=== PATIENT | male | born 1945 | race Caucasian/White ===

== ENCOUNTER 2017-01-29 11:23 | Inpatient (IN) | payer MEDICARE ==
--- NOTE | 2017-01-29 12:14 | RAD ---
CHEST ONE VIEW: History: Hypotension. Comparison: 01-05-15 FINDINGS: Cardiac device is similar. Lungs are slightly hypoinflated. Mild prominence of the pulmonary arteries . No acute osseous abnormality. IMPRESSION: Mild lung hyoinflation and pulmonary arterial enlargement. POS: [facility]
[2017-01-29 12:26] LABS: Hematocrit 44.7 % (42.0-52.0); Mean Platelet Volume 7.7 fL (7.4-10.4); Red Blood Cell (RBC) Count 4.64 mill/uL (4.70-6.10); White Blood Cell (WBC) Count 18.2 thou/uL (4.8-10.8)
[2017-01-29 12:47] LABS: ALT (SGPT) 26 U/L (8-55); AST (SGOT) 42 U/L (5-34); Alkaline Phosphatase 69 U/L (40-150); Anion Gap 23 mmol/L (10-20); BUN (Urea Nitrogen) 50 mg/dL (8.4-25.7); Bilirubin, Total 0.8 mg/dL (0.2-1.2); Calc. Creatinine Clearance 0 mL/min (70-130); Carbon Dioxide 35 mmol/L (23-31); Chloride 75 mmol/L (98-107); Estimated GFR-MDRD 18; Globulin 3.2 g/dL (2.4-3.5); Protein, Total 6.4 g/dL (5.8-8.1)
[2017-01-29 12:48] LABS: Band 62 % (5-11); Metamyelocyte 4 % (0-0); Myelocyte 1 % (0-0); Neutrophil 22 % (42-75); Reactive Lymphocytes 1 % (0-10); Toxic Granulation SLIGHT; Vacuoles MODERATE
[2017-01-29 12:51] LABS: Troponin I 0.074 ng/mL (< 0.028)
[2017-01-29] MEDS ORDERED: Norepinephrine 8 MG/0.9% NS 250 ML ONE (14:12)
--- NOTE | 2017-01-29 14:36 | RAD ---
FRONTAL VIEW CHEST: COMPARISON: 01/29/17. INDICATION: Central line placement evaluation. FINDINGS: There is a right internal jugular venous catheter terminating at the SVC region. No discrete pneumot horax is visualized. There are numerous artifacts limiting detail. Cardiomediastinal silhouette is stable. No consolidation or effusion. IMPRESSION: 1. Right internal jugular catheter placement with tip overlying superior vena cava region. No discr ete pneumothorax. 2. Numerous extrinsic artifacts limit detail. POS: [facility]
[2017-01-29 15:37] LABS: Lactic Acid - Sepsis 3.5 mmol/L (0.5-2.2)
[2017-01-29 15:46] LABS: Troponin I 0.074 ng/mL (< 0.028)
[2017-01-29] MEDS ORDERED: Lidocaine Viscous Sol 2% 15 ml UD Cup ONE (15:48)
[2017-01-29] MEDS ORDERED: Oxymetazoline HCl 0.05% ( 15 ML ) ONE (15:48)
[2017-01-29] MEDS ORDERED: Benzocaine 20% Spray 60 ML CAN ONE (15:48)
--- NOTE | 2017-01-29 15:53 | CT ---
EXAM: ABDOMEN CT WITHOUT CONTRAST PELVIC CT WITHOUT CONTRAST 01/29/17 HISTORY: Hypotension. Abdominal distention, abdominal pain. COMPARISON: None. TECHNIQUE: An abdomen and pelvic CT are performed without IV or oral contrast. Coronal reformatted images are brandon bmitted for interpretation. FINDINGS: ABDOMEN CT: Chronic changes in the lung bases. The heart is enlarged. No significant pericardial fluid. There is atherosclerosis of the visualized aorta. No aneurysm or periaortic fat stranding. Symmetric attenuati on of the psoas muscles. Limited evaluation of the solid organs due to lack of IV contrast. Grossly, the liver, spleen, pancre as, and adrenal glands are unremarkable. Mild bilateral adrenal gland hyperplasia is suspected. Gallbladder is surgically absent. There is symmetric attenuation of the kidneys. No evidence of obstructive uropathy. There is stranding of the abdominal mesentery. There is slightly complex perihepatic free fluid with attenuation coefficient of 13 Hounsfield units. Fluid tracks along the left and right pericolic gutte rs. There are multiple distended fluid filled loops of small bowel. Ileocecal junction is difficult t o appreciate but appears to be grossly unremarkable. There mixed attenuation of the left hemiabdomen which may represent a group of small bowel. Possibility of phlegmonous change cannot be completely ex cluded. There is decompression of the colon. There is mucosal thickening involving the sigmoid and di stal descending colon which may be due to remote bouts of diverticulitis. Obvious diverticular diseas e is not appreciated currently. Extensive diverticula, some of which are filled with air and some of which are filled with barium are noted. PELVIC CT: There is free fluid in the pelvis. No mass, lymphadenopathy or free air. Urinary bladder is unremarka ble. There are no lytic or blastic lesions of the osseous structures. IMPRESSION: 1. High grade small bowel obstruction. Evaluation is limited. Abnormal attenuation of the left l ower quadrant may represent multiple small bowel loops. This may be the source of obstruction. Overal l evaluation is limited by lack of oral contrast and IV contrast administration. General surgical con sultation is recommended. 2. There is edema and fluid in the abdomen and pelvis. 3. Mucosal prominence of the left hemicolon likely due to remote bouts of diverticulitis. Results of study discussed with Dr. Cortes, 01/29/17 at 3:33 p.m. Code CR POS: [facility]
[2017-01-29] MEDS ORDERED: Fentanyl 250 MCG/5 ML VIAL ONE (17:01)
[2017-01-29] MEDS ORDERED: Midazolam HCl 2 mg/2 ml Vial ONE (17:01)
[2017-01-29] MEDS ORDERED: Fentanyl 100 MCG/2 ML VIAL ONE (17:01)
[2017-01-29] MEDS ORDERED: Albumin 5% 500 ML ONE (17:02)
[2017-01-29] MEDS ORDERED: Propofol 200 MG/20 ML VIAL ONE (17:33)
[2017-01-29] MEDS ORDERED: PHENYLEPHRINE-NS 100 MCG/ML 10 ML SYRINGE ONE ×2 (17:33)
[2017-01-29] MEDS ORDERED: Succinylcholine Chloride 20 MG/ML 10 ml SYRINGE FS ONE (17:33)
[2017-01-29] MEDS ORDERED: Lidocaine 1% PF 5 ML VIAL ONE (17:33)
[2017-01-29] MEDS ORDERED: Sodium Bicarb 50 MEQ/50 ML Abboject 8.4% SYRINGE ONE (17:58)
[2017-01-29] MEDS ORDERED: Sodium Bicarbonate 2.4 MEQ/5 ML ONE (17:58)
[2017-01-29] MEDS ORDERED: Promethazine HCl 25 MG/ML VIAL IM PRN (18:11)
[2017-01-29] MEDS ORDERED: Lactated Ringer's 500 ML IV PRN (18:11)
[2017-01-29] MEDS ORDERED: ePHEDrine/0.9% NaCl/PF SYRINGE 50 mg/10 ml SLOW IVP PRN (18:11)
[2017-01-29] MEDS ORDERED: Bupivacaine 0.75% W/DEXTROSE 8.25% 2 ML AMP NERVE BLCK ONE (18:11)
[2017-01-29] MEDS ORDERED: Ondansetron HCl/PF 4 MG/2 ML Vial IVP PRN ×4 (18:11→21:09)
[2017-01-29] MEDS ORDERED: Naloxone HCl 0.4 mg/ml Vial IVP PRN ×2 (18:11)
[2017-01-29] MEDS ORDERED: Fentanyl 100 MCG/2 ML VIAL I-THECAL ONE (18:11)
[2017-01-29] MEDS ORDERED: Eucerin (Mineral Oil/Petrolatum,White) 30 gm Jar TOP PRN (18:11)
[2017-01-29] MEDS ORDERED: Acetaminophen 325 MG TAB PO PRN ×2 (18:11→21:09)
[2017-01-29] MEDS ORDERED: diphenhydrAMINE 50 MG/ML VIAL IVP PRN (18:11)
[2017-01-29] MEDS ORDERED: Fentanyl 4mcg/Marcaine 0.1% Cassette 100 ML EPIDURAL SCH (18:15)
[2017-01-29] MEDS ORDERED: Communication Order-Pharmacy FS SCH (18:15)
[2017-01-29] MEDS ORDERED: Phenylephrine 10 MG/NS 250 ML 0 ML ONE (18:22)
[2017-01-29] MEDS ORDERED: Albumin 25% 100 ML ONE (18:23)
[2017-01-29] MEDS ORDERED: EPINEPHrine 1 MG/ML AMP ONE ×2 (18:28→18:29)
[2017-01-29] MEDS ORDERED: Heparin 10,000 UNITS/1 ML VIAL ONE (18:51)
[2017-01-29] MEDS ORDERED: Sodium Chloride 0.9% 20 ML ONE (18:51)
[2017-01-29] MEDS ORDERED: Dextrose 5% in Water 1,000 ML IV PRN (19:31)
[2017-01-29] MEDS ORDERED: Dextrose 50% Abboject 50 ML SYRINGE SLOW IVP PRN (19:31)
[2017-01-29] MEDS ORDERED: Ventilator Sedation Protocol 1 EACH FS SCH (19:45)
[2017-01-29] MEDS ORDERED: DISCONTINUE PREVIOUS NARCOTIC PAIN MEDICATIONS AND BENZODIAZEPINES FS SCH (19:57)
[2017-01-29] MEDS ORDERED: Lorazepam 2 MG/ML VIAL SLOW IVP PRN (19:57)
--- NOTE | 2017-01-29 19:59 | CON ---
DATE OF CONSULT: 01/29/2017 HISTORY OF PRESENT ILLNESS: A 71-year-old male patient, reports two weeks of progressive abdominal d istention and bloating. He reports normal bowel movements. He had a bowel movement 3 days ago. He has been passing some flatus. He has had a colonoscopy in the remote past elsewhere. He saw Dr. Ale bryant today hoping to plan a colonoscopy, but in his office, the patient was noted to be hypotensive and pale in appearance and sent to the emergency room where he was noted to have a blood pressure in the 60s and 70s, heart rate in 90 and he was started on Levophed. Fluid boluses administered. Blood pre ssure is improved to 90 systolic. Temple catheter attempted. No urine returned. No occurrence or tr aumatic cannulation. No bleeding. Catheter was placed all the way in, but as there was no urine ret urned, it was removed. Patient underwent a CAT scan abdomen and pelvis at 2:40, performed without IV and without oral contrast. There were chronic changes in the lung bases, no solid organ abnormality , gallbladder surgically absent. No evidence of urinary obstruction. There is stranding in the abdo renea mesentery, complex perihepatic free fluid, and intraabdominal fluid with distended fluid filled loops of small bowel, decompressed small bowel distally, phlegmonous changes in the left amish-abdome n cannot be excluded. Colon is decompressed, evidence of diverticular disease without diverticulitis . Chest x-ray, chronic changes. White count 18, hemoglobin 14, 62% bands. Sodium 128, potassium 4. 5, chloride 75, BUN 50, creatinine 3.47 (previously normal). Liver function tests normal. CK-MB 12. 5. Troponin 1, 0.074. BNP 258. MEDICATIONS: Xarelto 20 mg at bedtime, he has not taken in 3 days. Potassium citrate 10 mg at bedti me, lisinopril 2.5 mg at bedtime, furosemide 80 mg daily, digoxin 0.125 mg at bedtime, Coreg 25 mg at bedtime, nebulizer treatments daily. PAST SURGICAL HISTORY: Transesophageal echocardiogram in 2013, 15-20% EF. Repeat echocardiogram, Dr Isidro Erwin's office, 09/02/2016, 45-50% cardiac ejection fraction. Defibrillator change 2014, laparo scopic cholecystectomy at another facility out of town, past history of colonoscopy. PAST MEDICAL HISTORY: Nonischemic cardiomyopathy, cardiac ejection fraction has improved from office echocardiogram, Dr. Erwin's office this year. Chronic atrial fibrillation, he has had several ab lations, cardioversions without resolution, but with improvement. COPD, tobacco cessation for severa l years, cardiac catheterizations without evidence of coronary artery disease. REVIEW OF SYSTEMS: Ten point noncontributory. PHYSICAL EXAMINATION: VITAL SIGNS: 86 kilograms, 94/55, respiratory rate 28, heart rate 80. HEENT: Unremarkable. CARDIAC: Irregularly irregular, heart rate 80. PULMONARY: No wheezing or rhonchi at base. ABDOMEN: Quiet, no bowel sounds, protuberant, distended, acute abdomen with peritoneal signs diffuse ly. EXTREMITIES: No ankle edema. LABORATORY DATA: White count 18, hemoglobin 14, left shift, 62% bands. Sodium 128, potassium 4.5, c arbon dioxide 35, BUN 50, anion gap 23, creatinine 3.47. GFR 18, glucose 142. Calcium 10, CK-MB 12. 5, troponin I 0.074. BNP 258. CT scan of abdomen and pelvis noted. Chest x-ray noted. ASSESSMENT AND PLAN: 1. Acute abdomen, sepsis, hypotension, leukocytosis left shift. He has received vancomycin and Roce phin. We would recommend an exploratory laparotomy with indicated procedures. Risks of infection, b leeding, reoperation, heart problems, heart failure, have been explained. He consents. We saskia l plan this urgently tonight. 2. Poor IV access. Residents placed a central line. 3. Acute kidney injury with acute renal failure, anuric. Temple catheter placed twice without urine return and not left in. CT scan does not show a distended bladder, there is no evidence of obstructi ve uropathy. 4. Nonischemic cardiomyopathy, cardiac ejection fraction most recently 45-50%, defibrillator in plac e, history of atrial fibrillation on anticoagulation. Anticoagulation not taken in last 3 days.
--- NOTE | 2017-01-29 20:09 | RAD ---
CHEST ONE VIEW 01/29/17 HISTORY: Intubated. Followup. COMPARISON: Earlier exam on the same date. FINDINGS: The cardiac silhouette is magnified by projection. Tip of an endotracheal catheter projects over the thoracic inlet. Nasogastric tube descends to the stomach. Right internal jugular central venous you ter remains in place. Left subclavian cardiac electronic device is stable. there is no evidence of pn eumothorax. IMPRESSION: Endotracheal catheter and other lines and tubes are in good radiographic position. POS: [facility]
[2017-01-29 20:19] LABS: Sodium 129 mmol/L (135-148)
[2017-01-29 20:21] LABS: Mechanical Tidal Volume 500 ml; Mode SIMV; Modified Allen's Test NOT DONE; Pressure Support 10 cmH2O; Vent YES
[2017-01-29 20:29] LABS: Prothrombin Time 23.8 SEC (12.0-14.7)
[2017-01-29] MEDS ORDERED: Sodium Chloride 0.9% 1,000 ML IV SCH ×2 (20:30→21:09)
[2017-01-29] MEDS: Fentanyl 20 MCG/ML 250 ML IVPB SCH (20:53)
[2017-01-29] MEDS: Norepinephrine 8 MG/0.9% NS 250 ML IVPB SCH (20:54)
[2017-01-29] MEDS: Propofol 1,000 MG/100 ML VIAL IV PRN (20:54)
[2017-01-29] MEDS: Sodium Chloride 0.9% 1,000 ML IV SCH ×2 (20:54→20:55)
[2017-01-29] MEDS ORDERED: Heparin 5,000 UNITS/ML VIAL SC SCH (21:00)
--- NOTE | 2017-01-29 21:07 | PDOC.EVN ---
Event Note - Event Note Event Note: I was apart of the family medicine team who initially was asked to admit this patient. I performed the central line and took the initial history from patient. At this time patient was hypotensive and pale. He was alert and orientedx3. Pt was ill but with it mentally. He was competent to make his own decisions at this time. He had no lapse in judgement. During my assessment he had an acute abdomen and we ordered a CT of the Abdomen/pelvis. It was then we found the severe colon obstruction and likely possibly a perforation. It was at this time we decided pt needed to go for surgery and at this time we discussed the case with Dr. Melendez and decided he would take over care and admit the patient. During my assessment and my initial workup for admission I discussed code status with the patient. I asked him his wishes if his heart were to stop or he needed help breathing. I asked him if he wanted us to do everything we can to help keep him alive. I explained to him that this would include chest compressions and likely shocking the chest. I also explained this likely would require intubation with a breathing tube. Pt at this time stated that he was a DNR. I double checked and told him DNR means Do not rescusitate. Just to make sure I let him know that DNR meant we would not take any extreme measure and not do any of the above explained. I asked if he understood. He understood and stated to me he did not want any of that. He stated he wanted to be a DNR <José Ryan - Last Filed: 01/29/17 20:57> Attending Addendum - Attending Addendum I evaluated the patient in the ER with Dr. Melendez present. Per Dr. Ryan's note, code status was discussed and patient expressed a desire to be DNR during their discussion. Patient revoked his DNR when speaking with Dr. Melendez with myself present and agreed to be full code in order to proceed with surgical intervention, understanding that he would likely remain on the ventilator after his surgery. After this discussion, it was decided by myself and Dr. Melendez that his case was appropriate for surgical management and Dr. Melendez assumed care of the patient. <Dory Waggoner - Last Filed: 01/30/17 12:20>
[2017-01-29] MEDS ORDERED: Piperacillin/Tazobactam 3.375 GM in Sodium Chloride 0.9% 100 ML IVPB SCH (21:09)
[2017-01-29] MEDS ORDERED: Bisacodyl 10 MG SUPP PR PRN (21:09)
[2017-01-29] MEDS ORDERED: Acetaminophen 650 MG Suppository PR PRN (21:09)
[2017-01-29] MEDS ORDERED: Bisacodyl 5 MG TAB PO PRN (21:09)
[2017-01-29] MEDS ORDERED: Norepinephrine 8 MG/0.9% NS 250 ML IVPB SCH (21:09)
[2017-01-29] MEDS ORDERED: Ondansetron ODT 4 MG TAB PO PRN (21:09)
--- NOTE | 2017-01-29 21:30 | PRG ---
DATE OF SERVICE: 01/29/2017 The patient is postoperative laparotomy, abdominal washout, colon resection for perforated diverticul itis with a septic abdomen. He remains in septic shock. He is on [address] José Ryan dis cussed with the patient in the emergency room his code status. The patient declared that he did not want to be intubated, did not want to be defibrillated, and did not want CPR performed. DNR will be reinstated postoperatively, although he will be maintained on the ventilator.
[2017-01-29] MEDS ORDERED: Phenylephrine 10 MG/NS 250 ML 250 ML ONE ×2 (21:33→22:09)
--- NOTE | 2017-01-29 21:47 | CON ---
DATE OF CONSULTATION: 01/29/2017 REASON FOR CONSULTATION: Nonischemic cardiomyopathy. PRIMARY PRODUCTION EXPEDITER: Tres Erwin M.D. HISTORY OF PRESENT ILLNESS: Mr. Concepcion is a 71-year-old white gentleman who comes to the hospital for abdominal distention. He has been having this for the last 2 weeks. He took himself off of Xarelto, which is on for atrial fibrillation because he thought he was going to need a colonoscopy and he made an appointment with Dr. Ann, gastrologist. He presented to his office today and before he could even see me, he was found to be hypotensive, diaphoretic and tachycardic. So he was immediately sent to the ER where workup was done including a CT of the abdomen that showed that he had an acute abdomen, so Dr. Melendez was consulted for admission and he took him to the OR and found to have a perforated diverticulitis with abscess and peritonitis. He was left with an open abdomen with plan to repeat washout in the next few days. He currently is ventilated and sedated on Levophed and on epinephrine. Cardiology is being consulted as he has a history of nonischemic cardiomyopathy. He had an EF of about 20-25%, AICD was placed. He eventually continued on medical therapy and his last EF on this August of this year was at 45-50%. Last time his defibrillator was changed, that was in 2014. Currently, he is unable to provide any history given he is intubated and sedated. PAST MEDICAL HISTORY: 1. Nonischemic cardiomyopathy, with close to normal EF now at 45-50% on last evaluation. 2. Chronic atrial fibrillation. 3. Chronic obstructive pulmonary disease. 4. Cardiac catheterization which were normal in the distant past. PAST SURGICAL HISTORY: 1. Ablations in the past. 2. Cholecystectomy. 3. Renal surgeries in the past. 4. Legally blind. OUTPATIENT MEDICATIONS: Include, 1. Xarelto 20 mg a day. 2. Potassium 10 mEq a day. 3. Lisinopril 2.5 mg at bedtime. 4. Lasix 80 mg a day. 5. Digoxin 0.125 mg at bedtime. 6. Coreg 25 mg b.i.d. 7. Nebulizer treatments. ALLERGIES: No known drug allergies. REVIEW OF SYSTEMS: Unobtainable as the patient is sedated and intubated. PHYSICAL EXAMINATION: VITAL SIGNS: Blood pressure 90/59 on two pressors, pulse of 82, respiratory rate 20, satting 100% on 50% FiO2. GENERAL: Sedated and intubated. HEENT: Normocephalic, atraumatic. NECK: Supple. LUNGS: Have coarse breath sounds bilaterally. CARDIOVASCULAR: S1, S2, no S3, S4, distant heart sounds. ABDOMEN: Open with a wound VAC. No bowel sounds are heard. EXTREMITIES: 1+ edema bilaterally. SKIN: Cool and mottled bilateral lower extremities. LABORATORY WORK: Preoperative: His white count was 18, hemoglobin of 14, hematocrit of 44, platelet count 339. Chemistry: Sodium of 128, potassium of 4.5, chloride of 75, carbon dioxide of 35, anion gap of 23, BUN of 50, creatinine of 3.4, GFR of 18, glucose of 142. CK-MB is 12.5. Troponin of 0.07 and 0.07, albumin of 3.2. EKG shows a paced rhythm, underlying atrial fibrillation. CT of the abdomen reviewed. Recent surgery reviewed. ASSESSMENT AND PLAN: 1. Nonischemic cardiomyopathy. 2. Septic shock. 3. Status post ruptured diverticulitis with intraabdominal abscess. 4. Chronic atrial fibrillation. 5. Most recent ejection fracture of 45-50%. PLAN: 1. Continue supportive care for now. 2. Levophed and epinephrine as pressor support. 3. We will get an echocardiogram to make sure that his LV function has maintained for now. 4. If his EF is reduced, we may want to add an inotropic drug to his regimen. For now, continue Levophed and epinephrine. 5. Patient is severely ill and would not be unexpected. Thank you for letting us to participate in the care of your patient. We will continue to follow. Thirty minutes critical care were delivered at bedside. MAGY
[2017-01-29 21:51] LABS: Troponin I 0.058 ng/mL (< 0.028)
[2017-01-29 21:55] LABS: Critical Call CKMBM RESULT DECREASING
[2017-01-29] MEDS: Albuterol Sulfate 2.5 mg/3 ml Neb NEB SCH (22:24)
[2017-01-29] MEDS ORDERED: Phenylephrine 10 MG/NS 250 ML 250 ML IVPB SCH (22:30)
[2017-01-29] MEDS: Hydrocortisone Sod Succ/PF 100 mg/2 ml Vial IVP SCH (22:37)
[2017-01-29] MEDS: Pantoprazole 40 MG VIAL IVP SCH (22:37)
[2017-01-29] MEDS: Heparin 5,000 UNITS/ML VIAL SC SCH (22:38)
[2017-01-29 23:50] LABS: Hematocrit 35.2 % (42.0-52.0)
[2017-01-30] MEDS: Piperacillin/Tazobactam 2.25 GM in Sodium Chloride 0.9% 100 ML IVPB SCH ×5 (00:06→23:22)
[2017-01-30] MEDS: Albuterol Sulfate 2.5 mg/3 ml Neb NEB SCH (01:45)
--- NOTE | 2017-01-30 02:57 | OP ---
DATE OF SERVICE: 01/29/2017 PREOPERATIVE DIAGNOSES: Sepsis, intra-abdominal perforated diverticulitis with purulent peritonitis, and acute renal failure. POSTOPERATIVE DIAGNOSES: Sepsis, intra-abdominal perforated diverticulitis with purulent peritonitis , and acute renal failure. PROCEDURES: Laparotomy, adhesiolysis, sigmoid resection, 5 liters of saline pulse lavage abdominal w ashout, no colostomy form, Ike's pouch marked with a 2-0 Prolene suture, ABThera placement with open abdomen, plan to return to the operating room possibly tomorrow, Thursday and certainly Thursday, ho for definitive closure, Thursday and colostomy. POSTOPERATIVE PROCEDURE: Exploratory laparotomy, sigmoid resection, abdominal washout, no colon left disjointed, colostomy not formed, adhesiolysis. ANESTHESIA: General anesthesia. SURGEON: Steve Melendez MD ESTIMATED BLOOD LOSS: 200 mL DESCRIPTION OF PROCEDURE: The patient was taken to the operating room where under general anesthesia , the abdomen was clipped of hair, prepared with ChloraPrep, draped in routine fashion. A midline in cision was made, centered about the umbilicus and carried down through the skin and subcutaneous tiss ue entering the abdominal cavity sharply, immediately. On entering the abdominal cavity, there is pu rulent exudate, foul smell. Small bowel loops were adherent with inflammatory purulent adhesions. T hese were taken down bluntly carefully. There were tied adhesions, inflammatory terminal ileum to th e sigmoid colon. There was purulent feculent discharge. Careful dissection freed this portion of th e ileum without violation of the small bowel. Small bowel loops were inspected and interloop abscess es drained. The purulent material was throughout the abdominal cavity and the pelvis, right gutter, left gutter, and subdiaphragmatic and right subhepatic. All these purulent fluid collections were as pirated. Abdominal cavity thoroughly irrigated. At this point, the sigmoid colon was mobilized enou gh to identify the offending segment and problem. Mesentery dissected free and adjacent to colon mes entery divided between 2-0 silk ties and LigaSure used. The colon was divided proximally and distall y with the contour stapler. Proximally, there was a segment with serosal tears and a short segment w as resected to accommodate this. Ike's pouch stump marked with a 2-0 Prolene suture with a long tag. Abdominal cavity thoroughly irrigated and evacuated. Again sponge and needle counts were buster ect. Abdominal cavity irrigated and irrigant evacuated. ABThera applied. Right groin Trialysis catheter then placed under sterile technique. The right groin was re-prepped w ith new gowns and gloves. I then cannulated the femoral vein, placing the J wire and enlarged the sk in entrance site sharply and small and medium-sized dilators placed over the J-wire and the femoral v ein removed. The catheter placed over the J-wire into the femoral vein, catheter secured with 3-0 ny raf sutures, and Biopatch sterile dressing applied. Each port aspirated blood and flushed with hepar inized saline solution 1000 units heparin per mL indicated volume on the port.
[2017-01-30] MEDS: Hydrocortisone Sod Succ/PF 100 mg/2 ml Vial IVP SCH ×4 (03:09→20:59)
[2017-01-30 03:34] LABS: Prothrombin Time 19.2 SEC (12.0-14.7)
[2017-01-30 03:44] LABS: Anisocytosis SLIGHT = 6-15 cells (100X) (0-5/hpf); Band 42 % (5-11); Hematocrit 27.8 % (42.0-52.0); Macrocytosis SLIGHT = 6-15 cells (100X) (0-5/hpf); Mean Platelet Volume 8.2 fL (7.4-10.4); Metamyelocyte 14 % (0-0); Neutrophil 35 % (42-75); Red Blood Cell (RBC) Count 2.93 mill/uL (4.70-6.10)
[2017-01-30 03:51] LABS: ALT (SGPT) 41 U/L (8-55); AST (SGOT) 97 U/L (5-34); Alkaline Phosphatase 33 U/L (40-150); Anion Gap 14 mmol/L (10-20); BUN (Urea Nitrogen) 53 mg/dL (8.4-25.7); Bilirubin, Total 1.1 mg/dL (0.2-1.2); Calc. Creatinine Clearance 25 mL/min (70-130); Calcium 7.3 mg/dL (7.8-10.44); Carbon Dioxide 25 mmol/L (23-31); Chloride 93 mmol/L (98-107); Estimated GFR-MDRD 19; Globulin 1.7 g/dL (2.4-3.5); Protein, Total 3.8 g/dL (5.8-8.1)
[2017-01-30] MEDS: EPINEPHrine 4 MG in Dextrose 5% in Water 250 ML IVP SCH ×4 (04:08→10:10)
[2017-01-30] MEDS ORDERED: Sodium Chloride 0.9% 1,000 ML IV SCH (05:15)
[2017-01-30 06:36] LABS: Oxyhemoglobin 94.3 % (94.0-97.0); Sodium 129 mmol/L (135-148)
[2017-01-30 06:40] LABS: Mechanical Tidal Volume 500 ml; Vent YES
[2017-01-30 06:41] LABS: Mode SIMV/PS; Pressure Support 10 cmH2O
--- NOTE | 2017-01-30 07:48 | CON ---
DATE OF CONSULTATION: 01/30/2017 HISTORY: Mr. Concepcion is a 71-year-old white male who was initially admitted for complaints of abdomin al distention. He was seen by Surgery. It was felt that he had an acute abdomen. He underwent expl oratory laparotomy yesterday. During the said events and procedures the patient's urine output has d ropped dramatically. He was noted not to be making significant urine output. He was also hemodynami heather unstable. He is on several pressor support and aggressive volume repletion has been done. Dur ing that 12 hours he minimally made urine output - about 20 mL. We are now being consulted for his a cute kidney injury and anuria. A temporary femoral dialysis catheter has been placed by Dr. Melendez. We are now being consulted for further management of this acute kidney injury. REVIEW OF SYSTEMS: Not obtainable since the patient is sedated and intubated. MEDICATIONS: 01/30/2017 - Reviewed. PAST MEDICAL HISTORY: He has nonischemic cardiomyopathy with EF of 45-50%, chronic atrial fibrillati on, COPD. The patient is legally blind. PAST SURGICAL HISTORY: 1. Status post renal surgery. 2. Status post cholecystectomy. 3. Status post cardiac ablation. 4. Status post cardiac catheterization. SOCIAL HISTORY: Not obtainable at the present time. ALLERGIES: No known drug allergies. TRAUMA: None. IMMUNIZATIONS: Unknown. HOSPITALIZATIONS: Please see past medical history. FAMILY HISTORY: Unknown. PHYSICAL EXAMINATION: VITAL SIGNS: Blood pressure is 133/70, heart rate 70. Please note he is on several pressor supports , pulse ox 90+ %. HEENT: The patient has slightly pale conjunctivae, anicteric sclerae. NECK: No neck mass, no carotid bruits, no JVD. CHEST: No deformities. LUNGS: Decreased breath sounds. HEART: Irregular, no murmur, no gallops or rubs. ABDOMEN: Globular, soft. Positive for surgical dressing. EXTREMITIES: Trace edema. LABORATORY AND X-RAY FINDINGS: 01/30/2017 - White count 17, hemoglobin 9.3, hematocrit 27.8. Sodiu m 127, potassium 4.7, chloride 93, carbon dioxide 25, BUN 53, creatinine 3.3, glucose 277, calcium 7. 3, AST 97, ALT 41, albumin 2.1. Urinalysis pending. Urine chemistries pending. ASSESSMENT AND PLAN: Acute kidney injury - consider hemodynamically mediated renal dysfunction. I c ould not rule out a superimposed acute tubular necrosis. I agree to optimize hemodynamics. Pressor support is on board, empiric volume repletion is being given. The patient continues to be anuric. W e will observe patient. We will plan when we will initiate dialysis. This morning I do not think th ere is an emergent need to initiate dialysis. We will reevaluate again, this patient later this afte rnoon after reviewing his urinalysis. If needed to come in the near future, consider renal ultrasoun d.
--- NOTE | 2017-01-30 08:38 | RAD ---
PORTABLE CHEST: HISTORY: Respiratory distress. COMPARISON: Prior day's study. FINDINGS: Endotracheal and NG tubes and right-side central line are all unchanged in position. A pacemaker is present. No interval change. IMPRESSION: Stable chest. POS: [facility]
[2017-01-30 08:55] LABS: Prothrombin Time 17.7 SEC (12.0-14.7)
[2017-01-30] MEDS ORDERED: Enoxaparin Sodium 40 MG/0.4 ML SYRINGE SC SCH (09:00)
[2017-01-30] MEDS ORDERED: Famotidine 20 MG TAB PO SCH (09:00)
[2017-01-30 09:08] LABS: Hematocrit 29.7 % (42.0-52.0); Mean Platelet Volume 9.6 fL (7.4-10.4); Red Blood Cell (RBC) Count 3.16 mill/uL (4.70-6.10); White Blood Cell (WBC) Count 15.4 thou/uL (4.8-10.8)
[2017-01-30] MEDS: Norepinephrine 8 MG/0.9% NS 250 ML IVPB SCH ×3 (09:20→21:05)
[2017-01-30] MEDS: Heparin 5,000 UNITS/ML VIAL SC SCH ×2 (09:20→15:38)
[2017-01-30] MEDS: Vasopressin 40 UNIT, Admixture Fee 1 EACH in Sodium Chloride 0.9% 100 ML IV SCH (09:20)
[2017-01-30] MEDS: Pantoprazole 40 MG VIAL IVP SCH ×2 (09:20→20:53)
[2017-01-30] MEDS: Sodium Chloride 0.9% 1,000 ML IV SCH ×4 (09:21→19:00)
[2017-01-30 10:23] LABS: Band 57 % (5-11); Metamyelocyte 6 % (0-0); Myelocyte 1 % (0-0); Neutrophil 23 % (42-75); Reactive Lymphocytes 1 % (0-10); Toxic Granulation SLIGHT
[2017-01-30 11:13] LABS: Osmolality, Urine 307 mOsm/kg (300-900)
--- NOTE | 2017-01-30 11:14 | CON ---
DATE OF CONSULTATION: 01/30/2017 SERVICE: Pulmonary medicine. HISTORY OF PRESENT ILLNESS: The patient is a 71-year-old white female with a past medical history significant for laparoscopic cholecystectomy remotely, presented to the hospital with a 2-week history of increased abdominal discomfort and bloating. Ultimately, on CT scan, he was found to have a high- grade small-bowel obstruction. As such, he was taken to the operating room last night. There was significant edema and free fluid in the belly. He was initiated on some antibiotics. He made it through the procedure, but required very significant pressor support. This morning, I find him on a little bit of fentanyl. That being said, he is awake and indicates his pain is under okay control. He is nodding appropriately and moving all 4 extremities. He currently denies any acute issues other than the discomfort. Last night, he was on 4 separate pressors that were essentially all maxed out. As of now, we have been slowly weaning off of the phenylephrine. He remains on epinephrine, Levophed, and vasopressin. There were no significant other events. PAST MEDICAL HISTORY: 1. Chronic systolic heart failure with a 45% ejection fraction most recently. This is nonischemic. 2. Chronic atrial fibrillation. 3. Chronic obstructive pulmonary disease. PAST SURGICAL HISTORY: 1. Cardiac ablation. 2. Cholecystectomy. 3. Kidney surgeries. 4. History of cardiac catheterization. ALLERGIES: No known drug allergies. MEDICATIONS: List of his inpatient medications were reviewed. Multiple small updates were made. SOCIAL HISTORY: I cannot obtain this. We have no reports of him using alcohol , tobacco, or illicit drugs. FAMILY HISTORY: Noncontributory. REVIEW OF SYSTEMS: Cannot be obtained, as the patient is currently intubated under the influence of some sedation. PHYSICAL EXAMINATION: VITAL SIGNS: Afebrile, pulse 80, blood pressure 114/66, respirations 17, saturation 97% on 27% FiO2. GENERAL: Patient is intubated and under the influence of some sedation. HEENT: Normocephalic, atraumatic. Sclerae are white, conjunctivae pink. Oral and nasal mucosa is moist without lesions. There is an OG tube and an endotracheal tube in place. LUNGS: Decent air entry. There is a prolonged expiratory phase. I hear minimal expiratory wheezing. No rhonchi or crackles are appreciated. HEART: Normal rate, regular. ABDOMEN: Soft. Tender to palpation throughout. There is rebound and guarding. His bowel sounds are absolutely absent. MUSCULOSKELETAL: No cyanosis or clubbing. There is no pitting in the bilateral lower extremities. NEUROLOGIC: Grossly nonfocal. LABORATORY DATA: WBC 15.4, hemoglobin 9.9, platelets 172,000. INR 1.4. PH 7.34, pCO2 of 47, pO2 of 79. Sodium 127. Creatinine 3.3 and roughly stable. BUN 53. AST 97, gently up trending. Liver function studies are, otherwise, unremarkable. Troponin is stable at 0.05. Lactate is gently trending upward to 4.2, which was immediately following his surgical procedure. This morning; however, his anion gap has gone from 23 down to 14 and his bicarbonate has also improved to the normal range. Blood cultures x2 were unremarkable. IMAGIN. Chest x-ray demonstrates endotracheal tube is in good position. Pacemaker is obvious. There is a right-sided IJ central venous catheter that terminates in the superior vena cava. Minimal vascular congestion is evident, but nothing that looks too terribly significant. 2. CT of abdomen and pelvis demonstrates a high-grade small-bowel obstruction. ASSESSMENT: 1. Acute hypoxic respiratory failure. 2. Septic shock. 3. Diverticulitis, perforated, status post laparotomy, postoperative day #1. 4. Chronic systolic heart failure without evidence of current exacerbation. 5. History of atrial fibrillation. PLAN: The supportive care will be continued. We will continue to wean pressors away as tolerated. My preference is to get rid of the epinephrine first, and then we can work on either the vasopressin or the Levophed. Antibiotics will be continued. I do not think he is stable at this point to go back for a washout unless it is absolutely necessary. We will repeat a hemoglobin this afternoon. Lactate will be repeated tomorrow morning. At this point, he seems to be tolerating these changes quite well. We have added stress doses of steroids. These can be discontinued 3 days after his last operation. The patient remains critically ill at this time. He does have a possibility of not making it through this hospital stay. That being said, for the time being his body is holding up to the stressors that had been placed on it. Critical care time: 45 minutes. MAGY
--- NOTE | 2017-01-30 11:43 | PDOC.CTH ---
Cardiology Progress Note - Subjective He remains sedated and intubated. - Objective Vital Signs Temp Pulse Resp BP Pulse Ox 01/30/17 10:20 82 96/59 L 01/30/17 08:37 80 114/66 01/30/17 08:00 98 F 01/30/17 07:29 98 F 80 17 97 01/30/17 06:52 80 84/56 L 01/30/17 06:00 17 01/30/17 04:23 80 01/30/17 04:00 98.9 F 17 01/30/17 02:00 17 01/30/17 01:47 80 91/60 01/30/17 01:45 98 01/30/17 00:00 98.6 F 17 Weight 196 lb 3.382 oz 01/29/17 01/30/17 01/31/17 06:59 06:59 06:59 Intake Total 7341 88.9 Output Total 1900 260 Balance 5441 -171.1 - Physical Examination General/Neuro: other: (sedated, intubated. ) Neck: no JVD present Lungs: CTA, unlabored respirations Heart: RRR Abdomen: NT/ND Extremities: + edema B (none) - Telemetry Telemetry Rhythm: underl afib, V paced - Labs Result Diagrams: 01/30/17 08:31 01/30/17 03:20 Troponin/CKMB CK-MB (CK-2) 7.3 ng/mL (0-6.6) H* 01/29/17 21:16 Troponin I 0.058 ng/mL (< 0.028) H 01/29/17 21:16 - Assessment/Plan 1. NICM, normalized EF on echo yesterday at 50-55%. 2. Septic shock 3. Ruptured diverticulitis with intra abdominal abscess s/p resection and washout. 4. Choric afib 5. Acute kidney injury, oliguric now. 6. Pericardial effusion. PLAN: - Continue supportive care, currently on 3 pressors. - Hypotension most likely from Septic shock. not pericardial effusion. - LV is normalized for now so it should be safe to give IV fluids from cardiac perspective.
--- NOTE | 2017-01-30 12:09 | ULT ---
RENAL ULTRASOUND: HISTORY: Acute renal failure. COMPARISON: None. CORRELATION: CT abdomen and pelvis 01/29/17. TECHNIQUE: Sagittal and transverse imaging of the kidneys is performed. FINDINGS: RIGHT KIDNEY: No hydronephrosis. The right kidney measures 5.3 x 10.9 x 9.3 cm. LEFT KIDNEY: The left kidney measures 11.2 x 5.7 x 5.8 cm. Evaluation of the left kidney is limited. Overall evaluation of the kidneys is limited due to a wound vac overlying the midline of the abdomen. There is evidence of free fluid predominantly in the right upper quadrant. Temple catheter decompresses the urinary bladder. IMPRESSION: 1. Limited evaluation due to wound vac. 2. Free fluid in the right upper quadrant. 3. Grossly, no hydronephrosis. POS: [facility]
[2017-01-30 12:29] LABS: Sodium, Urine 66 mmol/L (Not Available)
[2017-01-30] MEDS ORDERED: Vancomycin HCl 1 GM in Premix Bag 1 BAG IVPB SCH (14:00)
[2017-01-30] MEDS ORDERED: Acetaminophen 1,000 MG in Premix Bag 1 BAG IVPB PRN (18:36)
[2017-01-30 18:59] LABS: #Lymphocytes 0.4 thou/uL (1.20-3.40); #Monocytes 0.8 thou/uL (0.11-0.59); #Neutrophils 11.3 thou/uL (1.40-6.50); %Lymphocytes 2.8 % (21.0-51.0); %Monocytes 6.2 % (0.0-10.0); Mean Platelet Volume 7.4 fL (7.4-10.4); Prothrombin Time 16.1 SEC (12.0-14.7); Red Blood Cell (RBC) Count 2.53 mill/uL (4.70-6.10); White Blood Cell (WBC) Count 12.4 thou/uL (4.8-10.8)
[2017-01-30 19:05] LABS: Anion Gap 11 mmol/L (10-20); BUN (Urea Nitrogen) 55 mg/dL (8.4-25.7); Calc. Creatinine Clearance 25 mL/min (70-130); Calcium 7.7 mg/dL (7.8-10.44); Carbon Dioxide 28 mmol/L (23-31); Chloride 96 mmol/L (98-107); Estimated GFR-MDRD 17
[2017-01-30 19:07] LABS: Ovalocytes SLIGHT = 2-5 cells (100X) (0-1/hpf); Polychromasia SLIGHT = 2-3 cells (100X) (0-2/hpf)
[2017-01-30 19:10] LABS: Magnesium 1.5 mg/dL (1.6-2.6); Phosphorus 4.8 mg/dL (2.3-4.7)
[2017-01-30] MEDS ORDERED: Magnesium 2 GM/NS 0.9% 100 ML 2 GM in Premix Bag 1 BAG IVPB SCH (19:45)
[2017-01-30] MEDS: Fentanyl 20 MCG/ML 250 ML IVPB SCH (23:21)
[2017-01-31] MEDS: Vasopressin 40 UNIT, Admixture Fee 1 EACH in Sodium Chloride 0.9% 100 ML IV SCH (02:06)
[2017-01-31] MEDS: Hydrocortisone Sod Succ/PF 100 mg/2 ml Vial IVP SCH ×4 (02:09→20:39)
--- NOTE | 2017-01-31 02:47 | PRG ---
DATE OF SERVICE: 01/30/2017 SUBJECTIVE: Arin Concepcion was seen earlier this morning at 7:30, has been seen later in the morning a nd then evaluated this afternoon. He has progressed as far as weaning his pressors. He has been on Rasta-Synephrine overnight, weaned and discontinued earlier this morning. He continues on Levophed, ep inephrine, and vasopressin drips, all of which have been weaned successfully. As a result, he has be en converted from anuria to more than 200 mL of urine. His IV fluids saline were at 200 an hour; the y have been decreased to [address] Andres has ordered hydrocortisone stress coverage. Th e patient continues ventilatory support. He opens his eyes and communicates nonverbally appropriatel y. He is sedated with fentanyl. His blood pressure has improved. Earlier today, any movement resul renée in hypotension, but this has since improved. OBJECTIVE: VITAL SIGNS: Currently 118/63, 84 heart rate. He is on the ventilator rate of 18. LUNGS: Reveal coarse rhonchi, expiratory wheezing. CARDIAC: Irregularly irregular, controlled rate. ABDOMEN: Quiet, soft. The abdominal closure suction cannister drainage had bloody-looking fluid and had to be changed through the night, but this morning, this has slowed down and he has not had any s ignificant bloody drainage from the canister. LABORATORY DATA: Reveal that his white count this morning is 15, hemoglobin 9, he was given 1 unit o f blood because of persistent pressor requirements. His sodium is 127, potassium 4.7, BUN 53, creati nine 3.3 this morning, this has slightly improved relative to yesterday. GFR is 19. Dr. Jim castellanos has seen him and he does not need dialysis today. Dr. Andres is following him. He has received 4 units of fresh frozen plasma today due to an elevated PT of 19, it was rechecked after 2 units and it was 17. His INR is normal at 1.4. Chest x-ray is stable. ASSESSMENT AND PLAN: 1. Acute renal failure, anuric converted to oliguric. Continue to wean pressors as able. Nephrolog y is following. No need for dialysis today. 2. Respiratory failure. Continue ventilatory management. 3. Septic shock, pressor requirements are decreasing. Blood pressure is improving. 4. Open abdomen ABThera in place. The bloody drainage is decreased as his sepsis is improved. Hemo dynamics improved and coagulopathy is improved with administration of fresh frozen and blood products . The patient will need abdominal washout here this weekend, possibly tomorrow, Thursday or possibly could wait until Thursday for abdominal washout and definitive colostomy formation. Consideration of wound closure could be given then. 5. Perforated diverticulitis, intra-abdominal abscess, and purulent peritonitis, status post washout and colon resection. Colon is disjointed. Would avoid suppositories. Have discontinued all suppos itories ordered. There is no indication for Dulcolax at this time. No indication for Reglan at this time. TPN would not be appropriate at this time, but perhaps later this weekend, it could be starte d. 6. Nutrition: TPN could be started later this weekend pending pressor weaning and hemodynamic statu s.
[2017-01-31 05:19] LABS: #Lymphocytes 0.3 thou/uL (1.20-3.40); #Monocytes 0.7 thou/uL (0.11-0.59); %Eosinophils 0.1 % (0.0-10.0); %Lymphocytes 2.9 % (21.0-51.0); %Monocytes 7.3 % (0.0-10.0); Hematocrit 25.2 % (42.0-52.0); Mean Platelet Volume 7.9 fL (7.4-10.4); Red Blood Cell (RBC) Count 2.68 mill/uL (4.70-6.10)
[2017-01-31] MEDS: Piperacillin/Tazobactam 2.25 GM in Sodium Chloride 0.9% 100 ML IVPB SCH ×3 (05:20→17:15)
[2017-01-31 05:21] LABS: Prothrombin Time 15.2 SEC (12.0-14.7)
[2017-01-31 05:33] LABS: ALT (SGPT) 42 U/L (8-55); AST (SGOT) 45 U/L (5-34); Alkaline Phosphatase 45 U/L (40-150); Anion Gap 13 mmol/L (10-20); BUN (Urea Nitrogen) 59 mg/dL (8.4-25.7); Bilirubin, Total 0.8 mg/dL (0.2-1.2); Calc. Creatinine Clearance 24 mL/min (70-130); Calcium 7.9 mg/dL (7.8-10.44); Carbon Dioxide 24 mmol/L (23-31); Chloride 99 mmol/L (98-107); Estimated GFR-MDRD 17; Globulin 2.1 g/dL (2.4-3.5); Magnesium 2.1 mg/dL (1.6-2.6); Protein, Total 4.4 g/dL (5.8-8.1)
[2017-01-31 08:29] LABS: Oxyhemoglobin 89.3 % (94.0-97.0); Sodium 133 mmol/L (135-148); Vent YES
[2017-01-31 08:30] LABS: Mechanical Tidal Volume 500 ml; Mode SIMV/PS; Pressure Support 10 cmH2O
--- NOTE | 2017-01-31 08:35 | PRG ---
DATE OF SERVICE: 01/31/2017 SUBJECTIVE: This morning, he is awake, alert, responsive, on the vent, intubated, status post laparo rod, multiple medical problems. Neurologically, he is awake, responsive. OBJECTIVE: VITAL SIGNS: Blood pressure 103/50, pulse 76, sats are 100%, respirations 18. I's and O's are 4920 in and 1630 out CHEST: Decreased breath sounds, no wheezing. CARDIAC: Normal S1, S2. No gallops. ABDOMEN: Soft. No masses. LABORATORY DATA: White count 10,000, H&H is 8 and 25, platelet count is low at 95,000. INR 1.2, cre atinine 3.5, albumin is low at 2.3. IMPRESSION: 1. Status post laparotomy. 2. Respiratory failure. 3. Renal failure. 4. Sepsis. PLAN: We will continue antibiotics, Zosyn. Once he is off the pressors, probably start slow weaning. Continue steroids. We will follow. One-half hour critical care time.
[2017-01-31] MEDS: Pantoprazole 40 MG VIAL IVP SCH ×2 (09:04→20:39)
--- NOTE | 2017-01-31 09:42 | PRG ---
DATE OF SERVICE: 01/31/2017 RENAL MEDICINE SUBJECTIVE: Mr. Concepcion is a 71-year-old white male, who was admitted for an acute abdomen. He under went an exploratory laparotomy. He became hemodynamically unstable at that time. He was placed on p ressor and fluid resuscitation. He has now picked up with his urine output. His renal function seem s to be stabilizing. We are following him up for his acute kidney injury. Please note that urinalys is on 01/30/2017 showed urine sodium of 66 with urine creatinine of 55. PHYSICAL EXAMINATION: VITAL SIGNS: Blood pressure is 119/63, heart rate 80, respiratory rate 18, pulse ox 93%. GENERAL: The patient is arousable, comfortable, not in overt distress. SKIN: Adequate turgor. HEENT: He has slightly pale conjunctivae, anicteric sclerae. NECK: No neck mass, no carotid bruits, no JVD. CHEST: No deformities. LUNGS: Decreased breath sounds. No wheezing, no crackles. HEART: Normal sinus rhythm. No murmur, no gallops, no rubs. ABDOMEN: Globular, soft. Positive for surgical dressing. EXTREMITIES: Trace edema. MEDICATIONS: Medications of 01/31/2017 was reviewed. LABORATORY DATA: Laboratories of 01/31/2017; white count 10, hemoglobin 8.2, sodium 132, potassium 4 .4, chloride 99, carbon dioxide 24, BUN 59, creatinine 3.59, glucose 159, magnesium 2.1, phosphorus 5 .0, and albumin 2.3. ASSESSMENT AND PLAN: 1. Acute kidney injury - consider hemodynamically mediated renal dysfunction. Urine output is slowl y improving. Continue current fluid resuscitation as well as pressor support to optimize hemodynamic s. I do not see any indication for an emergent hemodialysis at the present time. Agree with current management. We will continue to monitor renal function daily. Reevaluate in a.m. again. 2. Status post acute abdomen - patient underwent exploratory laparotomy, stable. Surgery is followi gela.
--- NOTE | 2017-01-31 12:03 | PRG ---
This is Arden Loera PA-C dictating for Bryant Ortiz M.D. DATE OF SERVICE: 01/31/2017 SUBJECTIVE: This morning, the patient is awake, alert, responsive, intubated, status post laparotomy with multiple comorbidities. Neurologically, he is awake and responsive. OBJECTIVE: VITAL SIGNS: Blood pressure was 119/62, arterial blood pressure 105/55, heart rate of 80, respirator y rate of 18, 93% on the vent, 98 temperature. I's and O's are 4920 in and 1630 out. CHEST: He has had decreased breath sounds, but no wheezing. HEART: S1, S2, regular rate and rhythm. ABDOMEN: Soft. Back is intact. Mild tenderness. LABORATORY DATA: Today, CBC showed WBC of 10, hemoglobin of 8.2, hematocrit 25.2, platelet count 95. Chemistry showed sodium 132, potassium 4.4, chloride 99, bicarbonate 24, BUN 59, creatinine is 3.5, glucose 159. ASSESSMENT: 1. Status post laparotomy. 2. Sepsis. 3. Respiratory failure. 4. Renal failure. PLAN: Continue with wound VAC. Dr. Ortiz will make a decision to wash it over the weekend or the planned washout for Thursday. We will continue antibiotics on Zosyn and he does remain on pressors, Le vophed and they will continue to wean. Continue with steroids. Continue with critical care per Pulm onology and Family Medicine as primary team. The patient has been seen by and discussed with Dr. David medina at the time of dictation.
[2017-01-31] MEDS: Sodium Chloride 0.9% 1,000 ML IV SCH (12:30)
[2017-01-31] MEDS: Propofol 1,000 MG/100 ML VIAL IV PRN (22:23)
[2017-02-01] MEDS: Piperacillin/Tazobactam 2.25 GM in Sodium Chloride 0.9% 100 ML IVPB SCH ×4 (00:25→18:12)
[2017-02-01] MEDS: Hydrocortisone Sod Succ/PF 100 mg/2 ml Vial IVP SCH ×4 (02:58→20:42)
[2017-02-01 05:38] LABS: ALT (SGPT) 30 U/L (8-55); AST (SGOT) 21 U/L (5-34); Alkaline Phosphatase 46 U/L (40-150); Anion Gap 12 mmol/L (10-20); BUN (Urea Nitrogen) 58 mg/dL (8.4-25.7); Bilirubin, Total 0.6 mg/dL (0.2-1.2); Calc. Creatinine Clearance 28 mL/min (70-130); Calcium 8.4 mg/dL (7.8-10.44); Carbon Dioxide 26 mmol/L (23-31); Chloride 101 mmol/L (98-107); Estimated GFR-MDRD 18; Protein, Total 4.4 g/dL (5.8-8.1)
[2017-02-01 06:37] LABS: Oxyhemoglobin 95.1 % (94.0-97.0); Sodium 135 mmol/L (135-148)
[2017-02-01 06:38] LABS: Mechanical Tidal Volume 500 ml; Mode SIMV/PS; Modified Allen's Test POSITIVE; Pressure Support 10 cmH2O; Vent YES
[2017-02-01 06:42] LABS: #Lymphocytes 0.4 thou/uL (1.20-3.40); #Monocytes 0.7 thou/uL (0.11-0.59); #Neutrophils 8.2 thou/uL (1.40-6.50); %Eosinophils 0.2 % (0.0-10.0); %Lymphocytes 3.8 % (21.0-51.0); %Monocytes 7.3 % (0.0-10.0); Hematocrit 24.7 % (42.0-52.0); Mean Platelet Volume 8.2 fL (7.4-10.4); Red Blood Cell (RBC) Count 2.65 mill/uL (4.70-6.10); White Blood Cell (WBC) Count 9.3 thou/uL (4.8-10.8)
[2017-02-01 06:56] LABS: Prothrombin Time 32.6 SEC (12.0-14.7)
[2017-02-01] MEDS ORDERED: Furosemide 20 MG/2 ML VIAL SLOW IVP SCH (08:30)
[2017-02-01] MEDS ORDERED: Potassium Chloride 20 MEQ TAB PO SCH (08:30)
[2017-02-01] MEDS: Pantoprazole 40 MG VIAL IVP SCH ×2 (08:36→20:43)
--- NOTE | 2017-02-01 08:57 | PRG ---
DATE OF SERVICE: 02/01/2017 SUBJECTIVE: Mr. Concepcion remains intubated and ventilated, but he is off all the pressors. PHYSICAL EXAMINATION: VITAL SIGNS: Blood pressure on the cuff is 129/80, pulse is 80, it is a biventricular paced rhythm w ith atrial sensing. LUNGS: Clear anterolaterally. CARDIAC: Normal S1 and S2. ABDOMEN: Soft and nontender. EXTREMITIES: Warm and dry. No clubbing, cyanosis or edema. PERTINENT LABORATORIES: Creatinine 3.4, potassium 3.7. ASSESSMENT: 1. Hypotension, likely related to infection, improved. 2. Renal failure, stable. 3. Blood pressure is improved. 4. Status post biventricular pacemaker defibrillator with normal function. PLAN: 1. We will give him a single dose of furosemide and looks like he is somewhat volume overloaded. 2. Single dose of potassium in the NG. 3. Recheck the INR tomorrow, it sets as 3, he is not on any anticoagulants. There is no evidence of bleeding at this time. Unclear if that is true finding or lab error.
[2017-02-01] MEDS ORDERED: FLU VACC TS2017-18 (>65YR) 0.5 ML SYRINGE IM ONE (09:00)
--- NOTE | 2017-02-01 10:17 | RAD ---
KUB: Date: 02/01/17 HISTORY: Patient is status post sigmoid colectomy. Evaluation of NG tube placement. FINDINGS: Bowel gas pattern appears nonobstructive. A HemoSplit catheter is seen in the right groin. The tip of the HemoSplit is at the left L5 pedicle level. Postop cholecystectomy changes are seen. NG tube is p resent with tip in the stomach. There is what appears to be a rectal tube present. IMPRESSION: 1. NG tube with tip in the fundus region of the stomach. 2. Right-sided HemoSplit catheter within the right groin. The tip of the HemoSplit is at the left L5 pedicle level. POS: [facility]
[2017-02-01] MEDS: Sodium Chloride 0.9% 1,000 ML IV SCH (10:20)
--- NOTE | 2017-02-01 10:28 | PRG ---
DATE OF SERVICE: 02/01/2017 RENAL MEDICINE SUBJECTIVE: Mr. Concepcion is a 71-year-old white male who was seen by the Renal Service for his underly ing acute kidney injury. He was initially anuric. However, aggressive volume repletion as well as p ressor support was done and it improved his hemodynamics as well as improved the urine output. His c reatinine yesterday was noted 3.5. He is now arousable. The plan is for him to undergo another abdo renea surgery in a.m. for a possible abdominal wash. PHYSICAL EXAMINATION: VITAL SIGNS: Blood pressure is 119/71, heart rate 80, respiratory rate 12, pulse ox 96%. GENERAL: Exam noted to be awake, but somewhat confused. He is intubated on ventilator support. HEENT: He has slightly pale conjunctivae, anicteric sclerae. NECK: No neck mass, no carotid bruits, no JVD. CHEST: No deformities. LUNGS: Decreased breath sounds. HEART: Normal sinus rhythm. No murmur, no gallops, no rubs. ABDOMEN: Globular, soft, nontender. Positive for surgical dressing. EXTREMITIES: Trace edema. MEDICATIONS: Medications of 02/01/2017 was reviewed. LABORATORY DATA: Laboratories of 02/01/2017; white count 9.3, hemoglobin 8.2, sodium 135, potassium 3.7, chloride 101, carbon dioxide 26, BUN 58, creatinine 3.41, glucose 91, calcium 8.4, AST 21, ALT 3 0. INR is noted to be at 3.0. ASSESSMENT AND PLAN: 1. Acute kidney injury - this is most likely a hemodynamically mediated renal dysfunction. Improved stabilizing creatinine and urine output has improved somewhat. Continue current supportive care. N o indication for any dialytic intervention. Patient has been making an improved urine output. 2. Acute abdomen - status post exploratory laparotomy on empiric volume repletion. 3. History of congestive heart failure - currently on Lasix 20 mg IV daily. Continue supportive car e. Agree with current management.
[2017-02-01] MEDS ORDERED: Potassium Chloride 20 MEQ in Premix Bag 1 BAG IVPB SCH (11:00)
[2017-02-01] MEDS: Fentanyl 20 MCG/ML 250 ML IVPB SCH (12:39)
[2017-02-01] MEDS: Propofol 1,000 MG/100 ML VIAL IV PRN (12:44)
--- NOTE | 2017-02-01 13:23 | PRG ---
DATE OF SERVICE: 02/01/2017 SUBJECTIVE: Intubated on the vent, more responsive. He is still sedated. He is off all pressors. OBJECTIVE: VITAL SIGNS: Blood pressure 123/65, sats are 95%, respirations 18. CHEST: Decreased breath sounds without any wheezing. CARDIAC: Normal S1, S2. ABDOMEN: Soft. No masses. LABORATORY DATA: White count 9000, H&H 8 and 24, platelet count is low at 60, PO2 77, PCO2 37, pH 7. 43, on a rate of 17 and 27% FIO2. His creatinine 3.4. ASSESSMENT: Abdominal sepsis, respiratory failure and renal failure. PLAN: I am told he is due for a washout tomorrow. Probably can start weaning post-surgery. In the meantime, continue nutrition and supportive care, PT, antibiotics. One-half hour critical care time.
--- NOTE | 2017-02-01 13:37 | PRG ---
This is Arden Loera PA-C, dictating for Dr. Bryant Ortiz. DATE OF SERVICE: 02/01/2017 SUBJECTIVE: Mr. Conecpcion remains intubated and ventilated on the ventilator. He is off all pressors. The patient had no acute events overnight other than being somewhat anxious and then taking low dose propofol to ease his comfort on the ventilator as well as to have an open abdomen. OBJECTIVE: VITAL SIGNS: Blood pressure is 129/80, heart rate is 80. He has biventricular-paced rhythm. Respir atory rate is 17 and O2 saturation is 95% on the ventilator. LUNGS: Clear bilaterally via auscultation. CARDIOVASCULAR: S1, S2, regular rate and rhythm. ABDOMEN: Soft, somewhat tender in the right, nondistended. Wound VAC is intact. EXTREMITIES: Warm and dry. No clubbing, cyanosis or edema. LABORATORY DATA: CBC showed WBC of 9.3, hemoglobin 8.2, hematocrit 24.7 and platelet count of 60. C hemistry: Sodium 135, potassium 3.7, chloride 101, bicarbonate 26, BUN 58, creatinine 3.41, glucose 91. In 1.7 and out 2.0. PT 32.6 and INR of 3. RADIOLOGIC DATA: Reports unremarkable, shows appropriate placement of tubes. ASSESSMENT: 1. Hypertension, septic shock. 2. Renal failure, stable. Blood pressures improved, status post laparotomy due to ischemic bowel __ ___ discontinuity open abdomen. PLAN: We will continue with ventilatory status per Pulmonary Medicine. We appreciate Cardiology's i nput with repeating 1 dose of Lasix. The patient will be prepped and ready for a washout and possibl e closure tomorrow. Dr. Ortiz agrees with the above plan and has seen the patient at bedside.
[2017-02-02] MEDS: Piperacillin/Tazobactam 2.25 GM in Sodium Chloride 0.9% 100 ML IVPB SCH ×5 (00:10→23:03)
[2017-02-02] MEDS: Hydrocortisone Sod Succ/PF 100 mg/2 ml Vial IVP SCH ×4 (04:06→20:39)
[2017-02-02] MEDS: Propofol 1,000 MG/100 ML VIAL IV PRN ×2 (04:14→23:06)
[2017-02-02 05:20] LABS: #Lymphocytes 0.3 thou/uL (1.20-3.40); #Monocytes 0.7 thou/uL (0.11-0.59); #Neutrophils 7.5 thou/uL (1.40-6.50); %Eosinophils 0.6 % (0.0-10.0); %Lymphocytes 3.9 % (21.0-51.0); %Monocytes 8.1 % (0.0-10.0); Hematocrit 25.4 % (42.0-52.0); Red Blood Cell (RBC) Count 2.72 mill/uL (4.70-6.10); White Blood Cell (WBC) Count 8.6 thou/uL (4.8-10.8)
[2017-02-02 05:22] LABS: Prothrombin Time 15.8 SEC (12.0-14.7)
[2017-02-02 05:41] LABS: ALT (SGPT) 29 U/L (8-55); AST (SGOT) 16 U/L (5-34); Alkaline Phosphatase 50 U/L (40-150); Anion Gap 14 mmol/L (10-20); BUN (Urea Nitrogen) 57 mg/dL (8.4-25.7); Bilirubin, Total 0.6 mg/dL (0.2-1.2); Calc. Creatinine Clearance 33 mL/min (70-130); Calcium 8.6 mg/dL (7.8-10.44); Carbon Dioxide 26 mmol/L (23-31); Chloride 103 mmol/L (98-107); Estimated GFR-MDRD 22; Globulin 2.2 g/dL (2.4-3.5); Protein, Total 4.7 g/dL (5.8-8.1)
[2017-02-02] MEDS: Sodium Chloride 0.9% 1,000 ML IV SCH ×5 (08:33→20:38)
[2017-02-02] MEDS: Pantoprazole 40 MG VIAL IVP SCH ×2 (08:33→20:40)
--- NOTE | 2017-02-02 09:21 | PRG ---
DATE OF SERVICE: 02/02/2017 SUBJECTIVE: Mr. Concepcion is a 71-year-old white male who was admitted for shortness of breath and acut e abdomen. He is status post exploratory laparotomy. We are seeing this patient for his acute kidne y injury. Renal function has slowly been improving over the last few days. There is a planned abdominal reexploration with this patient as well as for abdominal washout. PHYSICAL EXAMINATION: VITAL SIGNS: Blood pressure is 123/70, heart rate 80, respiratory rate 17, pulse ox 94%. GENERAL: Noted to be awake, intubated on ventilator. He can follow commands. SKIN: Adequate turgor. HEENT: He has slightly pale conjunctivae, anicteric sclerae. NECK: No neck mass, no carotid bruits, no JVD. CHEST: No deformities. LUNGS: Decreased breath sounds. HEART: Normal sinus rhythm. No murmur, no gallops, no rubs. ABDOMEN: Globular, soft, nontender, no masses. EXTREMITIES: Positive for edema. MEDICATIONS: 02/02/2017 - Reviewed. LABORATORY: 02/02/2017 - White count 8.6, hemoglobin 8.6, sodium 139, potassium 3.6, chloride 103, c arbon dioxide 26, BUN 57, creatinine 2.87, glucose 104, calcium 8.6, AST 16, ALT 29, albumin 2.5. ASSESSMENT AND PLAN: 1. Acute kidney injury - this is secondary to hemodynamically mediated renal dysfunction. Much impr karri with optimization of his blood pressure as well as volume repletion. Currently, creatinine is n oted at 2.87 and the number was said to have peaked at a value of 3.59. There is no indication for a ny dialytic intervention. I agree with current management. 2. Acute abdomen for an abdominal washout today. Surgery is following, on empiric IV antibiotics.
--- NOTE | 2017-02-02 10:15 | PRG ---
DATE OF SERVICE: 02/02/2017 HISTORY: Mr. Concepcion is intubated. He opens his eyes to voice and interacts appropriately nonverball y. His pressors were weaned off 2 days ago, Thursday. PHYSICAL EXAMINATION: VITAL SIGNS: Temperature 97.9 degrees, 80, 123/70. His urine output is improved. He has not required dialysis. Gastric drainage 100 mL over 24 hours. Wound VAC 500 mL per 24 hours. Temple output 2715 mL over 24 hours. LUNGS: Clear to auscultation, no wheezing. CARDIAC: Regular rate and rhythm. ABDOMEN: Soft, nontender with ABThera in place. LABORATORY DATA: White count 8.6, hemoglobin 8.6, stable from last 2 days at 8.2, platelet count 63, 000. PT 15.8, INR 1.2, sodium 139, potassium 3.6, BUN 57, creatinine 2.87, GFR improved to 22, preal bumin 5 two days ago and magnesium 2.1 two days ago, phosphorus high at 5 two days ago. ASSESSMENT AND PLAN: 1. Respiratory failure, although pulmonary is doing well. He has been left intubated because of an open abdomen. Hopefully we can wean postoperatively. 2. Open abdomen. Plan abdominal exploration and washout. We will plan this today. We will plan pl acement of a colostomy and hopefully definitive closure of his midline wound. 3. Peritonitis, sepsis, improved. Pressors have been weaned off. He was on 4 pressors and these parra ve been weaned off completely as of 48 hours ago. 4. Acute kidney injury, he has not required dialysis. Nephrology has been following, Dr. Steiner. Audrey l function is improving. Urine output is up. GFR is improved, creatinine is down. Note, creatinine and renal function normal prior to this event. 5. Perforated peritonitis. He will require a colostomy. 6. Nonischemic cardiomyopathy. Cardiology is following. We will start him on heparin subcu postope ratively.
[2017-02-02] MEDS ORDERED: Fentanyl 250 MCG/5 ML VIAL ONE (12:16)
[2017-02-02 12:47] LABS: Sodium 128 mmol/L (135-148)
[2017-02-02 12:47] LABS: Oxyhemoglobin 96.8 % (94.0-97.0); Sodium 127 mmol/L (135-148)
[2017-02-02] MEDS ORDERED: PHENYLEPHRINE-NS 100 MCG/ML 10 ML SYRINGE ONE (13:03)
--- NOTE | 2017-02-02 13:05 | PRG ---
DATE OF SERVICE: 02/02/2017 SERVICE: Pulmonary Medicine. INTERVAL HISTORY: The patient is doing great from a respiratory standpoint. He is breathing comfortably on the ventilator. Over the weekend, he had a very significant improvement in his symptoms. He is off of all three of the pressors. His blood pressures in hemodynamics have remained very stable. Oxygen requirements are quite low. PHYSICAL EXAMINATION: VITAL SIGNS: Afebrile, pulse 80, blood pressure 126/68, respirations 12, saturation 95% on 30% FiO2 and PEEP of 5. HEENT: Normocephalic, atraumatic. Sclerae are white, conjunctivae pink. Oral and nasal mucosa is moist without lesions. LUNGS: Decent air entry. Crackles are present bilaterally. There is no prolonged expiratory phase, wheezing or rhonchi. ABDOMEN: Soft. Tender to palpation. Bowel sounds are hypoactive. There is no rebound or guarding present. MUSCULOSKELETAL: No cyanosis or clubbing. 1+ pitting is present throughout. GENITOURINARY: Temple catheter in place. NEUROLOGIC: Grossly nonfocal. LABORATORY DATA: WBC 8.6, hemoglobin 8.6, platelets 63,000. This is roughly stable and is starting to rebound. INR 1.2. PH 7.43, pCO2 of 37, pO2 77. Creatinine 2.87 and gently down trending. Basic metabolic profile is otherwise unremarkable. Sodium 139, magnesium 2.3. Blood cultures x2 are negative to date. ASSESSMENT: 1. Acute hypoxic respiratory failure. 2. Septic shock. 3. Peritonitis secondary to perforated diverticulitis. 4. Status post laparotomy, postoperative day #4. 5. Chronic systolic heart failure without current evidence of exacerbation. 6. History of atrial fibrillation. PLAN: The patient is stable enough to go back down to the operating room at this time. Pulmonary Critical Care will continue to follow. No adjustments have been made to the ventilator. We will minimize sedation as tolerated. We will provide him with a single dose of Lasix today. Critical care time: 30 minutes. MTDD
[2017-02-02 14:29] LABS: Mode OR ABG; Vent YES
[2017-02-02 14:29] LABS: Mode OR ABG; Vent YES
[2017-02-02] MEDS: Norepinephrine 8 MG/0.9% NS 250 ML IVPB SCH ×2 (17:00→22:12)
--- NOTE | 2017-02-02 17:20 | RAD ---
ABDOMEN ONE VIEW: History: Feeding tube placement. Comparison: 02-01-17 FINDINGS: Metallic tip of a Dobbhoff feeding catheter projects over the expected location of the gastric pyloru s. Nasogastric tube is partially visualized within the stomach. Ostomy appliance overlies the left abdomen. Visualized bowel gas pattern is nonspecific. A vascular c atheter projects over the right iliac vessels. There are degenerative changes of the lumbar spine and hips. IMPRESSION: Dobbhoff feeding catheter tip projects over the gastric pylorus. Other findings are as detailed above . POS: DEEDEE
[2017-02-02 17:30] LABS: Hematocrit 29.6 % (42.0-52.0); Red Blood Cell (RBC) Count 3.21 mill/uL (4.70-6.10)
[2017-02-02 18:11] LABS: Band 7 % (5-11); Basophilic Stippling SLIGHT = 1-2 cells (100X) (None Seen); Myelocyte 1 % (0-0); Neutrophil 82 % (42-75); Ovalocytes SLIGHT = 2-5 cells (100X) (0-1/hpf); Polychromasia MODERATE = 3-4 cells (100X) (0-2/hpf); Toxic Granulation SLIGHT; Vacuoles SLIGHT
[2017-02-02 18:29] LABS: Oxyhemoglobin 94.9 % (94.0-97.0); Sodium 141 mmol/L (135-148)
[2017-02-02 18:31] LABS: Mechanical Tidal Volume 500 ml; Mode SIMV; Pressure Support 10 cmH2O; Vent YES
[2017-02-02 19:44] LABS: Prothrombin Time 18.7 SEC (12.0-14.7)
--- NOTE | 2017-02-02 19:47 | OP ---
DATE OF OPERATION: 02/02/2017 PREOPERATIVE DIAGNOSES: Perforated diverticulitis with peritonitis, multifocal intra-abdominal absce sses, status post 4 days ago laparotomy, colon resection, washout, open abdomen. POSTOPERATIVE DIAGNOSES: Perforated diverticulitis with peritonitis, multifocal intra-abdominal absc esses, status post 4 days ago laparotomy, colon resection, washout, open abdomen. PROCEDURE: Exploratory laparotomy, abdominal washout, planned second look operation, colostomy, sple devin flexure mobilization of the colon. Seprafilm placed between the omentum and abdominal wall closu re of the fascia, wound VAC placed in the subcutaneous tissue with partial closure of the skin. SURGEON: Dr. Steve Melendez ANESTHESIA: General. Preoperative hemoglobin, 8.4. Two units of packed cells. DESCRIPTION OF PROCEDURE: Patient was taken to the operating room where under general anesthesia, ab domen was prepared with Betadine. ABThera removed, draped in the routine fashion. Deeper ABThera ap paratus removed. Abdominal cavity thoroughly irrigated. Irrigant evacuated. Small bowel inspected from the ligament of Treitz to the cecum and noted to be healthy. There were inflammatory changes in the terminal ileum mesentery where he had loculated abscess in the pelvis. This was healthy. There was one serosal tear closed with 3-0 Lembert silk sutures. The left colon was mobilized, splenic fl exure mobilized using the cautery and LigaSure. The superior mesenteric vein divided to promote left colon mobilization for future closure. As sponge and needle counts were correct, Bookwalter retract or was removed and colostomy performed. The surgical defect of skin excised in the left lower quadra nt, plug of subcutaneous tissue excised, anterior rectus fascia, cruciate incision made, rectus muscl e reflected medially and laterally and posterior fascia/peritoneum, a cruciate incision made and dila renée to fingerbreadths and the colon brought out through this opening. Seprafilm placed between the o mentum and the abdominal wall and fascia closed with continuous suture of #1 PDS. Skin approximated loosely superiorly and inferiorly in the midline about the umbilicus, left open otherwise. Colostomy maturation undertaken by excising the staple line and four quadrant turnbolt sutures of 3-0 Vicryl p laced. Simple sutures of 3-0 Vicryl placed to finalize colostomy maturation. Wound care team arrive d and placed a wound VAC in midline wound and the colostomy. The patient tolerated the procedure curly bernal
[2017-02-02] MEDS ORDERED: Heparin 5,000 UNITS/ML VIAL SC SCH (21:00)
[2017-02-02 22:34] LABS: Band 8 % (5-11); Hematocrit 28.4 % (42.0-52.0); Mean Platelet Volume 8.4 fL (7.4-10.4); Metamyelocyte 4 % (0-0); Myelocyte 1 % (0-0); Neutrophil 75 % (42-75); Red Blood Cell (RBC) Count 3.06 mill/uL (4.70-6.10); White Blood Cell (WBC) Count 20.6 thou/uL (4.8-10.8)
[2017-02-03] MEDS: Hydrocortisone Sod Succ/PF 100 mg/2 ml Vial IVP SCH ×4 (02:16→20:44)
[2017-02-03] MEDS: Norepinephrine 8 MG/0.9% NS 250 ML IVPB SCH ×2 (02:27→13:25)
[2017-02-03] MEDS: Sodium Chloride 0.9% 1,000 ML IV SCH ×3 (02:31→14:59)
[2017-02-03 03:44] LABS: Prothrombin Time 17.4 SEC (12.0-14.7)
[2017-02-03 03:54] LABS: Anion Gap 16 mmol/L (10-20); BUN (Urea Nitrogen) 58 mg/dL (8.4-25.7); Calc. Creatinine Clearance 36 mL/min (70-130); Calcium 7.9 mg/dL (7.8-10.44); Carbon Dioxide 20 mmol/L (23-31); Chloride 110 mmol/L (98-107); Estimated GFR-MDRD 25; Magnesium 2.2 mg/dL (1.6-2.6); Phosphorus 5.5 mg/dL (2.3-4.7)
[2017-02-03 04:05] LABS: Digoxin 0.53 ng/mL (0.8-2.0)
[2017-02-03 04:08] LABS: Band 7 % (5-11); Hematocrit 24.4 % (42.0-52.0); Mean Platelet Volume 8.2 fL (7.4-10.4); Metamyelocyte 6 % (0-0); Myelocyte 3 % (0-0); Neutrophil 75 % (42-75); Reactive Lymphocytes 1 % (0-10); Red Blood Cell (RBC) Count 2.66 mill/uL (4.70-6.10); White Blood Cell (WBC) Count 18.6 thou/uL (4.8-10.8)
[2017-02-03] MEDS: Piperacillin/Tazobactam 2.25 GM in Sodium Chloride 0.9% 100 ML IVPB SCH ×4 (05:06→23:12)
[2017-02-03] MEDS: Pantoprazole 40 MG VIAL IVP SCH ×2 (09:12→20:44)
[2017-02-03] MEDS: Digoxin 0.5 MG/2 ML AMP SLOW IVP SCH (09:12)
--- NOTE | 2017-02-03 09:47 | PRG ---
DATE OF SERVICE: 02/03/2017 SUBJECTIVE: Mr. Concepcion is a 71-year-old white male seen for an acute kidney injury. Yesterday, he underwent abdominal washing. However, he had an episode of hypotension. He was given several liters of fluid at that time. PHYSICAL EXAMINATION: VITAL SIGNS: Currently, the patient's blood pressure is 97/57, heart rate is 80 , respiratory 22, pulse ox 95%. GENERAL: The patient is sedated and intubated on ventilator support. SKIN: Adequate turgor. HEENT: He has pale conjunctivae, anicteric sclerae. NECK: No neck mass, no carotid bruits, no JVD. CHEST: No deformities. LUNGS: Clear breath sounds. No wheezing, no crackles. HEART: Normal sinus rhythm. No murmur, no gallops or rubs. ABDOMEN: Globular, soft, nontender, no masses. EXTREMITIES: No edema, no deformities. MEDICATIONS: 02/03/2017 - Reviewed. LABORATORIES: 02/03/2017 - White count 18.6, hemoglobin 8.3, sodium 142, potassium 3.5, chloride 110, carbon dioxide 20, BUN 58, creatinine 2.56, glucose 169, phosphorus 5.5. ASSESSMENT AND PLAN: 1. Acute kidney injury - hemodynamically mediated renal dysfunction, stable renal function. Creatinine at 2.56. Continue to optimize hemodynamics. Continue p.r.n. volume repletion. No indications for any dialytic intervention. 2. Anemia, p.r.n. blood transfusion. 3. Acute abdomen, status post exploratory laparotomy. Continue supportive care. No indication for any dialytic intervention. MTDD
--- NOTE | 2017-02-03 09:56 | PRG ---
DATE OF SERVICE: 02/03/2017 SERVICE: Pulmonary Medicine. INTERVAL HISTORY: The patient is doing really well from a respiratory standpoint. Last night when chikis ramos came back from the operating room, he had a severe hypotensive episode that lasted for several hour s. He required a unit of blood, platelets, 2 liters of fluid. Levophed was restarted. It was up to 20 mcg at one point, but it started to slowly taper back off. That being said, his urine output nev er really declined too terribly much. Additionally, his mentation remains intact and he is breathing comfortably this morning. PHYSICAL EXAMINATION: VITAL SIGNS: Afebrile currently. Pulse 80, blood pressure 97/57 on 12 mcg of Levophed, respirations 22, saturation 95% on 25% FiO2 and a PEEP of 5. HEENT: Normocephalic, atraumatic. Sclerae are white, conjunctivae pink. Oral and nasal mucosa mois t without lesions. LUNGS: Decent air entry. There are dependent crackles present, but there is no prolonged expiratory phase or wheezing. HEART: Normal rate, regular. ABDOMEN: Soft. He is tender to palpation throughout, which is appropriate. There is a little bit o f rebound. Bowel sounds are completely absent. MUSCULOSKELETAL: No cyanosis or clubbing. There is trace pitting in the bilateral lower extremities and roughly 1+ pitting at the sacrum. GENITOURINARY: Temple catheter in place. NEUROLOGIC: Grossly nonfocal. LABORATORY DATA: WBC 18.6 and gently down trending. Hemoglobin 8.3. Platelets 144,000. INR 1.4 an d stable. PH 7.43, pCO2 31, pO2 77. Creatinine 2.56 and continuing to trend downward. Basic metabo lic profile is otherwise unremarkable. Phosphorus is 5.5. IMAGING: KUB demonstrates a small bore weighted feeding catheter in good position. There are multip le clips that overlie the abdomen. There appears to be an intraabdominal drain in place. There is a nonspecific bowel gas. ASSESSMENT: 1. Acute hypoxic respiratory failure, improving. 2. Septic shock, improving. 3. Peritonitis secondary to perforated diverticulitis. 4. Status post laparotomy and washout. 5. Chronic systolic heart failure with minimal volume overload. 6. Atrial fibrillation, currently paced. PLAN: We will wean sedation as tolerated. If he wakes up smoothly, spontaneous breathing trial will be considered. Extubation will be performed, particularly because we do have control over the patie nt's volume status. He continues to clear his inflammatory profile. Hopefully this will continue. CRITICAL CARE TIME: 30 minutes.
[2017-02-03 11:24] LABS: Prothrombin Time 16.9 SEC (12.0-14.7)
[2017-02-03 11:31] LABS: Hematocrit 24.4 % (42.0-52.0); Red Blood Cell (RBC) Count 2.64 mill/uL (4.70-6.10); White Blood Cell (WBC) Count 15.9 thou/uL (4.8-10.8)
[2017-02-03 11:58] LABS: Band 8 % (5-11); Metamyelocyte 4 % (0-0); Myelocyte 1 % (0-0); Neutrophil 70 % (42-75); Polychromasia SLIGHT = 2-3 cells (100X) (0-2/hpf)
[2017-02-03] MEDS ORDERED: Metoclopramide HCl 10 MG/2 ML VIAL IVP PRN (16:13)
[2017-02-03] MEDS ORDERED: Morphine 4 MG/ML VIAL SLOW IVP PRN (16:21)
[2017-02-03] MEDS ORDERED: Morphine PF 1 MG/ML SYR IVP PRN (16:21)
--- NOTE | 2017-02-03 16:30 | PRG ---
DATE OF SERVICE: 02/03/2017 LOCATION: ICU. SUBJECTIVE: Mr. Concepcion is doing well. He was seen earlier this morning and again this afternoon. B y the time I am seeing this afternoon, he has been extubated. He is awake and talking. Blood pressu re 105/48, respiratory rate 24, heart rate 83, blood pressure now 114/54, has been down into the 80s and 90s last night. Last night he was given saline boluses. He was given blood. He was given 2 uni ts of fresh frozen plasma as his INR was normal, but his PT was elevated. Hemoglobin this morning wa s 8.3 and this morning at 11:00 was 8.3, white count 15, down from 18 yesterday, platelet count 147,0 00. The patient's acute renal failure is improved. Sodium 142, potassium 3.5, chloride 110, carbon dioxide 20, BUN 58, creatinine 2.56, GFR 25. His urine output has been doing very well, 1315 mL over the last 24 hours. Gastric output 150 mL. The patient's colostomy looks healthy. His wound VAC is in place and healthy. The patient states his abdomen feels much better than it did preoperatively. OBJECTIVE: LUNGS: Clear to auscultation. CARDIAC: Regular rate and rhythm. ABDOMEN: Soft. EXTREMITIES: Unremarkable. ASSESSMENT AND PLAN: 1. Acute kidney injury, improved, I believe that we can remove his femoral dialysis catheter today. His renal failure is improving and Dr. Steiner, Nephrology is following him. 2. Respiratory failure. He has been extubated today. He has been doing well. 3. Deconditioning. We will order physical therapy, occupational therapy, and rehab screen. We will advance him to out of bed today three times a day and begin ambulating as possible. He may be able t o transfer to the floor tomorrow. I have nutrition initiated postpyloric Dobbhoff tube feedings at 3 0 mL per hour. I think his GI function will improve shortly and will continue the tube feeds through Dobbhoff. Dobbhoff seems to be just postpyloric and I think it will pass with time. We will order Re glan. Chronic systolic heart failure with minimal volume overload, improving. The patient's ejection fraction is 45-50%, on repeat echocardiogram. His cardiac function has improved since past studies. He has nonischemic cardiomyopathy. He currently has a paced rhythm, chronic atrial fibrillation.
[2017-02-03] MEDS: Acetaminophen 1,000 MG in Premix Bag 1 BAG IVPB SCH ×2 (17:39→23:19)
[2017-02-03] MEDS: Heparin 5,000 UNITS/ML VIAL SC SCH (20:45)
[2017-02-04] MEDS: Sodium Chloride 0.9% 1,000 ML IV SCH ×4 (00:01→18:48)
[2017-02-04] MEDS: Hydrocortisone Sod Succ/PF 100 mg/2 ml Vial IVP SCH ×4 (02:14→20:30)
[2017-02-04 04:31] LABS: Prothrombin Time 16.4 SEC (12.0-14.7)
[2017-02-04 04:43] LABS: Anion Gap 13 mmol/L (10-20); BUN (Urea Nitrogen) 62 mg/dL (8.4-25.7); Calc. Creatinine Clearance 31 mL/min (70-130); Calcium 8.1 mg/dL (7.8-10.44); Carbon Dioxide 23 mmol/L (23-31); Chloride 113 mmol/L (98-107); Estimated GFR-MDRD 20
[2017-02-04 04:47] LABS: Band 4 % (5-11); Hematocrit 24.4 % (42.0-52.0); Mean Platelet Volume 8.3 fL (7.4-10.4); Metamyelocyte 1 % (0-0); Myelocyte 1 % (0-0); Neutrophil 87 % (42-75); Red Blood Cell (RBC) Count 2.58 mill/uL (4.70-6.10); White Blood Cell (WBC) Count 20.5 thou/uL (4.8-10.8)
[2017-02-04] MEDS: Piperacillin/Tazobactam 2.25 GM in Sodium Chloride 0.9% 100 ML IVPB SCH ×4 (05:23→23:41)
[2017-02-04] MEDS: Acetaminophen 1,000 MG in Premix Bag 1 BAG IVPB SCH ×3 (05:23→18:09)
[2017-02-04] MEDS ORDERED: Pancrelipase DR 12000 1 CAP FS PRN (05:26)
[2017-02-04] MEDS ORDERED: Sodium Bicarbonate Tab 325 MG TAB PER TUBE PRN (05:26)
--- NOTE | 2017-02-04 08:24 | RAD ---
ABDOMEN ONE VIEW: History: 71-year-old male with Dobbhoff tube placement position check. Comparison: 02-02-17 FINDINGS: Dobbhoff tube remains in place as well as an NG tube. Bilateral pleural effusions and cardiomegaly. IMPRESSION: Dobbhoff tube and NG tubes again noted within the stomach showing little change from prior study. POS: DEEDEE
[2017-02-04] MEDS: Pantoprazole 40 MG VIAL IVP SCH ×2 (08:51→20:29)
[2017-02-04] MEDS: Digoxin 0.5 MG/2 ML AMP SLOW IVP SCH (08:51)
[2017-02-04] MEDS: Heparin 5,000 UNITS/ML VIAL SC SCH ×2 (08:51→20:30)
--- NOTE | 2017-02-04 09:13 | PRG ---
DATE OF SERVICE: 02/04/2017 SERVICE: Renal Medicine. SUBJECTIVE: Mr. Concepcion is a 71-year-old white male who was seen for acute kidney injury period of ti me with empiric volume repletion and pressor support. His hemodynamics has stabilized and renal func tion has slowly been improving. Please note, the patient is currently extubated. OBJECTIVE: VITAL SIGNS: Blood pressure 111/60, heart rate 81, respiratory 27, pulse ox 100%. GENERAL: Awake, comfortable, not in overt distress. SKIN: Adequate turgor. HEENT: He has slightly pale conjunctivae, anicteric sclerae. NECK: No neck mass, no carotid bruits, no JVD. CHEST: No deformities. LUNGS: Decreased breath sounds. HEART: Normal sinus rhythm. No murmur, no gallops, no rubs. ABDOMEN: Globular, soft, nontender. Positive for surgical dressing. EXTREMITIES: No edema, no deformities. MEDICATIONS: Of 02/04/2017 was reviewed. LABORATORY DATA: Of 02/04/2017, white count 20.5, hemoglobin 8. Sodium 145, potassium 3.6, chloride 113, carbon dioxide 23, BUN 62, creatinine 3.14, glucose is 180. ASSESSMENT AND PLAN: 1. Acute kidney injury/chronic renal failure, fluctuating creatinine. Creatinine noted to be slight ly at 3.14. Please note that yesterday the patient had hypotensive episodes. Our plan is simply to continue to observe him. Continue to optimize hemodynamics. Again, there is no indication for any d ialytic intervention. 2. Acute abdomen - status post exploratory laparotomy. Surgery following. The patient has multiple abdominal washouts. Furthermore, he is on empiric IV hydration. 3. Acute respiratory failure, resolved. The patient is extubated and off the ventilator. 4. Anemia. Continue to observe.
--- NOTE | 2017-02-04 15:57 | PRG ---
DATE OF SERVICE: 02/04/2017 SUBJECTIVE: Arin Concepcion is doing well today. He is up in a chair. He is awake and alert, commu nicative. OBJECTIVE: LUNGS: Clear to auscultation, no wheezing. CARDIAC: Regular rate and rhythm. Heart rate 80. ABDOMEN: Soft, nontender. Colostomy healthy. Wound VAC in place. LABORATORY DATA: White count 20, hemoglobin 8. 145 sodium, 3.6 potassium, 113 chloride, 62 BUN, cre atinine 3.14, GFR 20. He is on trophic tube feedings, 30 mL per hour per Dobhoff. Gastric drainage is 250 mL per 24 hours from his NG tube. Colostomy output 400 mL today, 110 mL yesterday. Temple out put 600 mL yesterday, 264 mL so far today. Dobbhoff tube remains barely postpyloric. ASSESSMENT AND PLAN: 1. Acute kidney injury this seems to be stable that slightly deteriorated from yesterday, but he is still making urine, hemodynamically stable. We will observe for now and Dr. Jim Steiner is followi ng him. 2. Await GI function postoperatively. NG tube output is minimal. He is on trophic tube feedings. 3. VAC wound. Subcutaneous tissue. 4. Colostomy status. 5. Levophed has been weaned off. We will hopefully plan to transfer him to the floor tomorrow pendi ng his status. 6. Deconditioning. Continue physical therapy and up in a chair. We have counseled that has been brandon bmitted.
[2017-02-04] MEDS ORDERED: Sodium Chloride 0.45% 1,000 ML IV SCH (21:45)
--- NOTE | 2017-02-04 22:03 | PRG ---
DATE OF SERVICE: 02/04/2017 SERVICE: Pulmonary Medicine. INTERVAL HISTORY: The patient is doing outstanding from respiratory standpoint. He extubated just f ine yesterday. He demonstrates decent strength. He is extraordinarily weak in the upper and lower e xtremities. That being said, he has a good cough. PHYSICAL EXAMINATION: VITAL SIGNS: Afebrile, pulse 84, blood pressure 122/55, respirations 27, saturation 97% on room air. GENERAL: Awake, alert, in no apparent distress. LUNGS: Decent air entry. Dependent crackles are present. No prolonged expiratory phase or wheezing . HEART: Normal rate, regular. ABDOMEN: Tender to palpation throughout. Bowel sounds are hypoactive today. There is no significan t rebound or guarding. MUSCULOSKELETAL: No cyanosis or clubbing. Lower extremity pitting is improving. GENITOURINARY: Temple in place. NEUROLOGIC: Grossly nonfocal. LABORATORY DATA: WBC 20.5 and up trending, hemoglobin 8.0. Platelets 142,000. Band count continues to drop. INR 1.3. Creatinine 3.14, BUN 62. Basic metabolic profile is otherwise unremarkable. Bl ood cultures x2 are negative. IMAGING: Abdominal x-ray demonstrates NG tube and Dobbhoff tube in good position with little change from prior study. ASSESSMENT: 1. Acute hypoxic respiratory failure, resolving. 2. Septic shock, resolving. 3. Peritonitis secondary to perforated diverticulitis. 4. Status post laparotomy and subsequent washout with closure. 5. Chronic systolic heart failure, currently approaching euvolemia. 6. Atrial fibrillation, paced. PLAN: We will continue our supportive care moving forward. Initiate a little bit of free water. We will focus on efforts on mobilizing the patient today while we continue other supportive care.
[2017-02-05] MEDS: Hydrocortisone Sod Succ/PF 100 mg/2 ml Vial IVP SCH ×4 (02:33→22:20)
[2017-02-05 04:14] LABS: Anion Gap 12 mmol/L (10-20); BUN (Urea Nitrogen) 67 mg/dL (8.4-25.7); Calc. Creatinine Clearance 28 mL/min (70-130); Calcium 8.2 mg/dL (7.8-10.44); Carbon Dioxide 23 mmol/L (23-31); Chloride 115 mmol/L (98-107); Estimated GFR-MDRD 18
[2017-02-05 04:38] LABS: Band 3 % (5-11); Hematocrit 24.4 % (42.0-52.0); Neutrophil 88 % (42-75); Red Blood Cell (RBC) Count 2.53 mill/uL (4.70-6.10); White Blood Cell (WBC) Count 26.1 thou/uL (4.8-10.8)
[2017-02-05] MEDS: Piperacillin/Tazobactam 2.25 GM in Sodium Chloride 0.9% 100 ML IVPB SCH ×3 (06:20→18:08)
[2017-02-05] MEDS ORDERED: Sodium Chloride 0.45% 1,000 ML IV SCH (08:30)
--- NOTE | 2017-02-05 09:06 | PRG ---
DATE OF SERVICE: 02/05/2017 SUBJECTIVE: Arin Concepcion is in ICU. He is awake and alert. He did spend most of the day in the [facility] yesterday. The patient is tolerating his tube feedings at 30 mL per hour, more of a trophic feeding rate. His g astric tube output has been 450 mL in the last 24 hours. This morning his nasogastric tube was remov ed and his Dobhoff feeding tube left in place. Colostomy output is increased. Urine output 1124 in the last 24 hours. OBJECTIVE: VITAL SIGNS: Temperature 98.2 degrees, blood pressure 125/57, respiratory rate 18. LUNGS: Clear to auscultation. CARDIAC: Regular rate and rhythm without murmur or gallop. ABDOMEN: Soft, bowel sounds present. Wound VAC in place. EXTREMITIES: Edematous. LABORATORY DATA: White count is up to 20,000; hemoglobin stable at 8, it was 8.3 yesterday throughou t the day, 9.4 the day prior; platelet count 142,000. Sodium 146; potassium 115; BUN 67; creatinine 3.48, which is slightly up from yesterday and the day before. GFR 18, which has diminished relativel y last 2 days; 2 days ago it was 25, yesterday 20. ASSESSMENT AND PLAN: 1. Acute kidney injury, it is stable. He has not required hemodialysis. Hemodialysis catheter that I placed in his groin has been removed. The patient is doing well overall and his renal function is slightly deteriorated the last 2 days, but he did have a hypotensive event in the operating room 2 d ays ago. Hopefully, this will continue to improve over time. His urine output is good. Continue to monitor in the ICU today. Hopefully transfer to the floor tomorrow. 2. Gastrointestinal function is returning. We will increase his tube feedings to 40 mL per hour. W e will ask speech therapy to see him. If he swallows well, we will consider removing his Dobhoff shahana orrow and initiate oral feedings. 3. Deconditioning. Physical therapy.
[2017-02-05] MEDS: Digoxin 0.5 MG/2 ML AMP SLOW IVP SCH (09:38)
[2017-02-05] MEDS: Pantoprazole 40 MG VIAL IVP SCH ×2 (09:42→22:20)
[2017-02-05] MEDS: Heparin 5,000 UNITS/ML VIAL SC SCH ×2 (09:42→22:19)
--- NOTE | 2017-02-05 11:22 | PRG ---
DATE OF SERVICE: 02/05/2017 SERVICE: Renal medicine. SUBJECTIVE: Patient voices no new complaints. He is extubate. He was admitted initially for an acu te abdomen and underwent an exploratory laparotomy with subsequent abdominal washing. He did develop acute kidney injury. Over time, conservative management was done, volume repletion with pressor sup port was done with this patient. Renal function has been holding steady at that time. However, I no renée that the patient's creatinine has slowly been inching up again. Most recent creatinine is now 3. 4. His GFR is 18 mL per minute. PHYSICAL EXAMINATION: VITAL SIGNS: Blood pressure is 125/57, heart rate 82, respiratory rate 18, pulse ox 99%, temperature 98.2. GENERAL: Noted to be awake, alert, supine, comfortable, not in distress. SKIN: Adequate turgor. HEENT: Slightly pale conjunctivae, anicteric sclerae. No neck mass, no carotid bruits, no JVD. CHEST: No deformities. LUNGS: Decreased breath sounds. HEART: Normal sinus rhythm. No murmur, no gallops or rubs. ABDOMEN: Globular, soft, nontender, no masses. EXTREMITIES: No edema, no deformities. MEDICATIONS: On 02/05/2017, reviewed. LABORATORY DATA: On 02/05/2017, sodium is 146, potassium is 3.9, chloride 115, carbon dioxide 23, BU N 67, creatinine 3.48, glucose 157, calcium 8.2. White count 26.1, hemoglobin 7.8. ASSESSMENT AND PLAN: 1. Acute kidney injury - Creatinine is slowly worsening in the last 2 days. Continue supportive car e. No indication for any dialysis. I will probably continue D5 half normal saline at 100 mL per marsha r with this patient in view of the concomitant hypernatremia. 2. Hypernatremia - Start D5 half normal, 100 mL per hour. 3. Status post acute abdomen, surgery is following on empiric IV antibiotics, status post explorator y laparotomy. 4. Anemia. Continue to observe.
[2017-02-05] MEDS: Sodium Chloride 0.45% 1,000 ML IV SCH ×2 (12:59→22:20)
--- NOTE | 2017-02-05 14:24 | PRG ---
DATE OF SERVICE: 02/05/2017 SUBJECTIVE: Mr. Concepcion is weak, but says he feels a little better. OBJECTIVE: VITAL SIGNS: He is afebrile. Blood pressure 132/60, heart rate 80, respiratory rate in the teens. Intake and output is positive 2475. He is up almost 12 liters last 3 days. LUNGS: Remarkable for bilateral equal breath sounds. HEART: Regular rhythm. ABDOMEN: Soft. LABORATORY DATA: White count 26.1, hemoglobin 7.8 and platelets 173. Sodium 146, potassium 3.9, chloride 115, bicarb 23, BUN 67 and creatinine 3.48. IMPRESSION: 1. Acute hypoxic respiratory failure, improving. 2. Status post sepsis, improving. 3. Perforated diverticulitis with peritonitis, improving. 4. Status post laparotomy. 5. Chronic systolic heart failure. 6. History of atrial fibrillation. 7. Chronic kidney disease with a slight decline in renal function, being followed by Nephrology. We will continue to follow with the other physicians caring for him. Critical care time 35 min. MAGY
[2017-02-06] MEDS: Piperacillin/Tazobactam 2.25 GM in Sodium Chloride 0.9% 100 ML IVPB SCH ×4 (00:01→17:56)
[2017-02-06 04:44] LABS: Anion Gap 10 mmol/L (10-20); BUN (Urea Nitrogen) 65 mg/dL (8.4-25.7); Calc. Creatinine Clearance 0 mL/min (70-130); Calcium 8.5 mg/dL (7.8-10.44); Carbon Dioxide 25 mmol/L (23-31); Chloride 116 mmol/L (98-107); Digoxin 0.75 ng/mL (0.8-2.0); Estimated GFR-MDRD 20
[2017-02-06] MEDS: Hydrocortisone Sod Succ/PF 100 mg/2 ml Vial IVP SCH ×4 (04:55→21:50)
[2017-02-06] MEDS: Sodium Chloride 0.45% 1,000 ML IV SCH ×3 (04:58→22:52)
[2017-02-06 05:22] LABS: Band 6 % (5-11); Hematocrit 23.2 % (42.0-52.0); Mean Platelet Volume 7.9 fL (7.4-10.4); Metamyelocyte 1 % (0-0); Myelocyte 2 % (0-0); Neutrophil 86 % (42-75); Red Blood Cell (RBC) Count 2.38 mill/uL (4.70-6.10); White Blood Cell (WBC) Count 20.2 thou/uL (4.8-10.8)
[2017-02-06] MEDS ORDERED: Sodium Chloride 0.45% 1,000 ML IV SCH (07:17)
--- NOTE | 2017-02-06 07:37 | PRG ---
DATE OF SERVICE: 02/06/2017 SUBJECTIVE: Arin Concepcion is doing well today. OBJECTIVE: VITAL SIGNS: Blood pressure 143/69, respiratory rate 29, temperature 97.7 degrees. LUNGS: Clear to auscultation. CARDIAC: Regular rate and rhythm without murmur or gallop. ABDOMEN: Soft, nontender. Stool in his colostomy bag, gas in his colostomy bag. Midline wound VAC dressing present. EXTREMITIES: Unremarkable, edematous LABORATORY DATA: White count 20,000 (26 yesterday), hemoglobin 7.5 (7.8 yesterday), platelet count 2 09,000. Sodium 147, potassium 3.7, carbon dioxide 116, creatinine 65 (down from 67 yesterday), BUN 6 5 (down from 67 yesterday), creatinine 3.13 (down from 3.48 yesterday), GFR 20 (up from 18 yesterday) . Accu-Cheks 140-160. Patient removed his Dobhoff overnight and was left out. NG tube was removed yesterday. Urine output 2180 over 24 hours. ASSESSMENT AND PLAN: 1. Acute renal failure. The patient continues gradual improvement. Continue treatment. We will de crease IV fluid rate. 2. Anasarca, malnutrition, end-stage renal disease, edema, decrease IV fluid rate, initiate diet. 3. Malnutrition, start oral feedings, full liquids. 4. Deconditioning. [id number] physical therapy efforts. 5. Transfer to the surgical floor. 6. Anemia, stable. Continue to monitor. Check hemoglobin later today and in the morning.
--- NOTE | 2017-02-06 08:06 | PRG ---
DATE OF SERVICE: 02/06/2017 SUBJECTIVE: The patient remains in the CCU. He is requiring continued intense nursing care. PHYSICAL EXAMINATION: VITAL SIGNS: On exam, his temperature is 97.7, pulse 81, blood pressure 143/69, O2 sat 95%, 24-hour intake 3134, output 2530. HEENT: Pupils react. Sclerae anicteric. Oropharynx clear. NECK: Without adenopathy, JVD, or bruits. LUNGS: Fairly clear anteriorly bilaterally. CARDIOVASCULAR: S1, S2 regular. No audible murmur. ABDOMEN: Midline wound VAC, left side colostomy. EXTREMITIES: He has purple changes over his fingers, which are not worse according to nursing staff. There is no cyanosis, trace edema. LABORATORY DATA: White blood cell count 20.2, hemoglobin 7.5, hematocrit 23.2, platelet count 209. Sodium 147, potassium 3.7, chloride 116, CO2 25, BUN 65, creatinine 3.1, glucose 146. ASSESSMENT: 1. Status post acute hypoxic respiratory failure. 2. Status post septic shock. 3. Peritonitis secondary to perforated diverticulitis. 4. Status post laparotomy, subsequent washout with closure. 5. Chronic systolic heart failure. 6. Atrial fibrillation with a paced rhythm. PLAN: 1. Continue current CCU care. 2. Continue IV Zosyn. 3. Discontinue norepinephrine from MAY. 4. Continue heparin for deep venous thrombosis prophylaxis. 5. IV fluids have been adjusted by General Surgery today. This will help with his hypernatremia.
[2017-02-06] MEDS: Pantoprazole 40 MG VIAL IVP SCH ×2 (09:00→21:49)
[2017-02-06] MEDS: Digoxin 0.5 MG/2 ML AMP SLOW IVP SCH (09:00)
[2017-02-06] MEDS: Heparin 5,000 UNITS/ML VIAL SC SCH ×2 (10:19→21:51)
--- NOTE | 2017-02-06 11:56 | PRG ---
DATE OF SERVICE: 02/06/2017 SUBJECTIVE: Mr. Concepcion is a 71-year-old white male with an acute abdomen, status post exploratory laparotomy and being followed up by the Renal Service for his acute kidney injury. His creatinine has been fluctuating the last several days. We started him on half normal saline yesterday and creatinine today is slightly improved at 3.1. Yesterday it was 3.48. In addition, half normal saline was started due to the hypernatremia. No new complaints today. He is extubated, no chest pain or shortness of breath. PHYSICAL EXAMINATION: VITAL SIGNS: Blood pressure is 143/69, heart rate 80, respiratory rate 23, pulse ox 98%. GENERAL: Noted to be awake, alert, supine, comfortable, not in distress. SKIN: Adequate turgor. HEENT: He has slightly pale conjunctivae, anicteric sclerae. NECK: No neck mass, no carotid bruits, no JVD. CHEST: No deformities. LUNGS: Decreased breath sounds. HEART: Normal sinus rhythm. No murmur, no gallops or rubs. ABDOMEN: Globular, soft, nontender. No masses; + colostomy EXTREMITIES: No edema, no deformities. MEDICATIONS: Please note he has surgical dressing noted on the abdomen. MEDICATIONS: 02/06/2017 - Reviewed. LABORATORY: 02/06/2017 - White count 20.2, hemoglobin 7.5, sodium 147, potassium 3.7, chloride 116, carbon dioxide 25, BUN 65, creatinine 3.13, glucose 146, calcium 8.5. ASSESSMENT AND PLAN: 1. Acute kidney injury - most likely hemodynamically mediated renal dysfunction. Currently on IV fluid. Continue current management. No indication for any dialytic intervention. Improving renal function Consider increasing half normal saline to 100 mL an hour. 2. Acute abdomen status post exploratory laparotomy - currently on midline wound VAC and on colostomy. There is again, no indication for any dialytic intervention. Continue supportive care. MTDD
--- NOTE | 2017-02-06 13:10 | PRG ---
DATE OF SERVICE: 02/06/2017 SUBJECTIVE: Mr. Concepcion today appears confused. No current complaints noted. PHYSICAL EXAMINATION: VITAL SIGNS: Blood pressure 141/75, pulse 83, temperature afebrile. LUNGS: Clear to auscultation. CARDIAC: Regular rate and rhythm. ABDOMEN: Mildly distended. EXTREMITIES: 1+ pitting edema. IMPRESSION: 1. Recent sepsis with perforated diverticulitis. 2. Chronic systolic heart failure. 3. Chronic atrial fibrillation. 4. Acute on chronic renal insufficiency. RECOMMENDATIONS: From a cardiovascular standpoint, Mr. Concepcion appears to be stable. His heart rate and blood pressure are stable. He has no current symptoms. We will continue current course.
[2017-02-07] MEDS: Piperacillin/Tazobactam 2.25 GM in Sodium Chloride 0.9% 100 ML IVPB SCH ×4 (00:40→18:34)
[2017-02-07] MEDS: Hydrocortisone Sod Succ/PF 100 mg/2 ml Vial IVP SCH ×4 (04:57→21:55)
[2017-02-07 05:10] LABS: Anion Gap 14 mmol/L (10-20); BUN (Urea Nitrogen) 55 mg/dL (8.4-25.7); Calc. Creatinine Clearance 42 mL/min (70-130); Calcium 8.8 mg/dL (7.8-10.44); Carbon Dioxide 22 mmol/L (23-31); Chloride 117 mmol/L (98-107); Estimated GFR-MDRD 25
[2017-02-07 05:38] LABS: Band 2 % (5-11); Hematocrit 26.2 % (42.0-52.0); Mean Platelet Volume 7.8 fL (7.4-10.4); Neutrophil 90 % (42-75); Nucleated RBC 2 % (0); Red Blood Cell (RBC) Count 2.67 mill/uL (4.70-6.10); White Blood Cell (WBC) Count 16.4 thou/uL (4.8-10.8)
[2017-02-07] MEDS: Sodium Chloride 0.45% 1,000 ML IV SCH ×2 (06:13→10:19)
[2017-02-07] MEDS: Pantoprazole 40 MG VIAL IVP SCH ×2 (09:15→21:56)
[2017-02-07] MEDS: Digoxin 0.5 MG/2 ML AMP SLOW IVP SCH (09:15)
[2017-02-07] MEDS: Heparin 5,000 UNITS/ML VIAL SC SCH ×2 (09:36→21:54)
[2017-02-07] MEDS ORDERED: Acetaminophen 500 MG TAB PO PRN (10:29)
[2017-02-07] MEDS ORDERED: traMADol HCl 50 MG TAB PO PRN ×2 (10:29)
[2017-02-07] MEDS ORDERED: Ibuprofen 600 MG TAB PO PRN (10:29)
--- NOTE | 2017-02-07 12:12 | PRG ---
DATE OF SERVICE: 02/07/2017 OBJECTIVE: VITAL SIGNS: Temperature 97.7 degrees, pulse 80, 23 respiratory rate, 97% saturation. GENERAL: The patient was transferred from ICU to a surgical floor yesterday. The patient is awake a nd alert. LUNGS: Clear to auscultation. CARDIAC: Regular rate and rhythm without murmur or gallop. ABDOMEN: Soft, nontender. Patient has stool in his colostomy bag. Colostomy is healthy. VAC back i n his midline wound. EXTREMITIES: Edematous. Scrotum edematous, but less so than previously. Urine output in the last 24 hours is recorded from his Temple 2180 yesterday, 925 as of this morning, although numbers may be skew due to transfer. LABORATORY: White count down to 16,000 from 20,000 yesterday and 26,000 days before. Hemoglobin is stable at 8.2. Sodium 149, potassium 3.8, BUN 55 down from 65 yesterday, creatinine 2.58 down from 3 .13 yesterday. GFR improved to 25 compared to 20 yesterday. ASSESSMENT AND PLAN: 1. Acute kidney injury, improving daily, urine output improving. We will continue to increase his d iet. Speech Pathology has seen him and swallow study is compromised. Diet is limited, but will adva nce diet as per Speech Therapy, the patient's tolerance capability. We will TKO his IV fluids. 2. Deconditioning. Rehab consult, Physical Therapy and Occupational Therapy, up out of bed most of the day as he was doing in intensive care unit.
--- NOTE | 2017-02-07 13:59 | PRG ---
DATE OF SERVICE: 02/07/2017 SUBJECTIVE: Mr. Concepcion was moved from the CCU to the floor yesterday. He is still encephalopathic. OBJECTIVE: VITAL SIGNS: Temperature 97.7, pulse 80, respirations 23, O2 saturation 97%. HEENT: Unremarkable. NECK: No JVD. LUNGS: Poor air movement. CARDIOVASCULAR: S1 and S2 regular. ABDOMEN: Soft. EXTREMITIES: Generalized edema throughout. ASSESSMENT: 1. Status post acute hypoxic respiratory failure. 2. Status post septic shock. 3. Peritonitis secondary to perforated diverticulitis. 4. Status post laparotomy. 5. Chronic systolic heart failure. 6. Atrial fibrillation. PLAN: The patient will continue his IV antibiotics. Hopefully we can increase activity. I do not t hink he is ready for rehab yet.
--- NOTE | 2017-02-07 16:10 | PDOC.CTH ---
Cardiology Progress Note - Subjective No new issues or concerns. - Objective Vital Signs Temp Pulse Resp BP Pulse Ox 02/07/17 14:16 80 22 H 94 L 02/07/17 11:58 97.2 F L 85 16 171/79 H 92 L 02/07/17 10:20 80 23 H 97 02/07/17 09:15 77 02/07/17 08:07 97.7 F 80 18 93 L 02/07/17 08:00 97.4 F L 74 15 94 L 02/07/17 06:57 92 L 02/07/17 06:54 82 21 H 92 L 02/07/17 04:10 24 H Admit Weight 184 lb 1.376 oz Weight 242 lb 2 oz 02/06/17 02/07/17 02/08/17 06:59 06:59 06:59 Intake Total 3134 1624 Output Total 2530 925 Balance 604 699 - Physical Examination General/Neuro: alert & oriented x3, NAD Neck: no JVD present Lungs: unlabored respirations Heart: other: (Irreg) Abdomen: NT/ND Extremities: + edema B (trace) - Labs Result Diagrams: 02/07/17 04:05 02/07/17 04:05 Troponin/CKMB CK-MB (CK-2) 7.3 ng/mL (0-6.6) H* 01/29/17 21:16 Troponin I 0.058 ng/mL (< 0.028) H 01/29/17 21:16 - Assessment/Plan 1. NICM, normalized EF on echo yesterday at 50-55%. 2. Septic shock 3. Ruptured diverticulitis with intra abdominal abscess s/p resection and washout. 4. Choric afib 5. NIKOLAY on CKD. PLAN: - CV stable. - No new recs.
[2017-02-07] MEDS ORDERED: Famotidine 20 MG TAB PO SCH (21:00)
[2017-02-08] MEDS: Piperacillin/Tazobactam 2.25 GM in Sodium Chloride 0.9% 100 ML IVPB SCH ×5 (00:44→23:09)
[2017-02-08] MEDS: Hydrocortisone Sod Succ/PF 100 mg/2 ml Vial IVP SCH ×4 (02:59→21:03)
[2017-02-08] MEDS: Sodium Chloride 0.45% 1,000 ML IV SCH (03:01)
[2017-02-08 07:10] LABS: Anion Gap 9 mmol/L (10-20); BUN (Urea Nitrogen) 51 mg/dL (8.4-25.7); Calc. Creatinine Clearance 53 mL/min (70-130); Calcium 8.9 mg/dL (7.8-10.44); Carbon Dioxide 29 mmol/L (23-31); Chloride 120 mmol/L (98-107); Estimated GFR-MDRD 32
[2017-02-08 07:21] LABS: Band 2 % (5-11); Hematocrit 24.4 % (42.0-52.0); Mean Platelet Volume 7.5 fL (7.4-10.4); Neutrophil 89 % (42-75); Red Blood Cell (RBC) Count 2.48 mill/uL (4.70-6.10); White Blood Cell (WBC) Count 13.5 thou/uL (4.8-10.8)
[2017-02-08] MEDS ORDERED: Sodium Chloride 0.45% 1,000 ML IV SCH ×2 (07:30→08:14)
[2017-02-08] MEDS ORDERED: Acetaminophen 1,000 MG in Premix Bag 1 BAG IVPB PRN (08:12)
[2017-02-08] MEDS ORDERED: Furosemide 40 MG/4 ML VIAL SLOW IVP SCH (08:15)
[2017-02-08] MEDS ORDERED: Digoxin 0.5 MG/2 ML AMP SLOW IVP SCH (09:00)
[2017-02-08] MEDS ORDERED: Digoxin 0.125 MG TAB PO SCH (09:00)
[2017-02-08] MEDS: Heparin 5,000 UNITS/ML VIAL SC SCH ×2 (09:18→20:56)
--- NOTE | 2017-02-08 09:40 | RAD ---
FRONTAL RADIOGRAPH CHEST: DATE: 02/08/17. COMPARISON: 01/29/17. HISTORY: Shortness of breath. FINDINGS: There is a multilead transvenous AICD. Since the 01/29/17 examination, endotracheal tube and nasogas tric tube have been removed. There is a right-sided vascular catheter, distal tip overlying the expe cted location of the SVC. When compared to the 01/29/17 exam, there has been interval development of marked perihilar and bibas ilar density suggesting airspace disease in bilateral perihilar regions in both lung bases as well as prominent bilateral pleural effusions. IMPRESSION: Interval development of perihilar interstitial and alveolar opacity with prominent bilateral pleural effusions. Findings suggest interval development of pulmonary edema. Infectious pneumonitis or aspi ration in the lung bases cannot be excluded. Followup imaging following treatment to document resolu tion advised. POS: DEEDEE
[2017-02-08] MEDS: Pantoprazole 40 MG VIAL IVP SCH ×2 (10:22→20:54)
--- NOTE | 2017-02-08 13:23 | PRG ---
DATE OF SERVICE: 02/08/2017 SUBJECTIVE: Arin Concepcion is on the surgical floor. In the ICU, he was out of bed in a neuro chair t wice a day 3-4 hours at a time. He was tolerating this well. He has not been out of bed into a srinivasan r since he has been on the surgical floor. OBJECTIVE: VITAL SIGNS: Temperature 97.6 degrees, pulse 91, saturation 93%, blood pressure 154/74. LUNGS: Clear to auscultation with some rhonchi and wet respirations on breathing. CARDIAC: Regular rate and rhythm. ABDOMEN: Soft, nontender. Colostomy healthy. Wound VAC in place. EXTREMITIES: Edematous. SCROTUM: Edematous. LABORATORY DATA: Urine output per Temple 1050 for 24 hours. He continues to have stool in his colost antony bag. Speech Pathology saw him and he is not safe to swallow. Patient is on n.p.o. status pendin g further evaluation. Hemoglobin is 7.6 this morning, white count 13.5. This morning, sodium 154, u p from 149 yesterday and 147 the day before, chloride 120, up from 116 two days ago and 117 yesterday , BUN 51, down from 55 yesterday and creatinine 2.06 down from 2.58 yesterday. GFR is 32, improved f rom 25 yesterday. Glucose is 130. ASSESSMENT AND PLAN: 1. Electrolyte imbalance with hypernatremia and hyperchloremia on normal saline. We will TKO intrav enous fluids and change to half normal saline. We will give him a dose of Lasix as he seems to be fl uid overloaded. His acute kidney injury seems to be improving with time. We will continue to monito r that. 2. Deconditioning. He needs therapy, needs to be out of bed. I have asked the nurses to get him out of bed into a neuro chair. He is a total lift as he was in intensive care unit. He will need to be out of bed for mobility and pulmonary deconditioning. 2. Poor swallowing per speech pathology. The patient does arouse to voice and respond appropriately . He is slightly confused, but he is neurologically intact. 3. [id number] status.
--- NOTE | 2017-02-08 14:18 | PRG ---
DATE OF SERVICE: 02/08/2017 SUBJECTIVE: The patient is feeling much better. He is awake. PHYSICAL EXAMINATION: VITAL SIGNS: Temperature 97.6, pulse 76, respirations 19, O2 sat 97% on 4 liters. HEENT: Unremarkable. NECK: No JVD. CHEST: Fairly clear. CARDIAC: S1 and S2 regular. ABDOMEN: Soft. EXTREMITIES: No edema. His chest x-ray showed pulmonary edema. ASSESSMENT: Post-peritonitis with improving respiratory status with the diuretics he received today. PLAN: Continue low flow oxygen. Continue IV antibiotics.
--- NOTE | 2017-02-08 14:40 | PDOC.CTH ---
Cardiology Progress Note - Subjective No new issue. - Objective Vital Signs Temp Pulse Resp BP Pulse Ox 02/08/17 10:44 76 19 97 02/08/17 09:16 108 H 02/08/17 08:00 97.6 F 83 20 100/82 92 L 02/08/17 06:29 93 L 02/08/17 06:25 91 19 93 L 02/08/17 05:18 97.6 F 80 18 154/74 H Admit Weight 184 lb 1.376 oz Weight 236 lb 02/07/17 02/08/17 02/09/17 06:59 06:59 06:59 Intake Total 1624 1350 1500 Output Total 925 1100 1125 Balance 699 250 375 - Physical Examination General/Neuro: NAD Neck: no JVD present Lungs: CTA, unlabored respirations Heart: other: (irreg) Abdomen: NT/ND Extremities: other: - Labs Result Diagrams: 02/08/17 06:35 02/08/17 06:35 Troponin/CKMB CK-MB (CK-2) 7.3 ng/mL (0-6.6) H* 01/29/17 21:16 Troponin I 0.058 ng/mL (< 0.028) H 01/29/17 21:16 - Assessment/Plan 1. NICM, normalized EF on echo at 50-55%. 2. Septic shock 3. Ruptured diverticulitis with intra abdominal abscess s/p resection and washout. 4. Choric afib 5. NIKOLAY on CKD. PLAN: - CV stable. - No new recs.
[2017-02-08] MEDS: Dextrose 5% in Water 1,000 ML IV SCH (15:40)
[2017-02-09] MEDS: Dextrose 5% in Water 1,000 ML IV SCH ×4 (01:29→22:06)
[2017-02-09] MEDS: Hydrocortisone Sod Succ/PF 100 mg/2 ml Vial IVP SCH ×2 (03:22→10:03)
[2017-02-09 05:28] LABS: Anion Gap 18 mmol/L (10-20); BUN (Urea Nitrogen) 48 mg/dL (8.4-25.7); Calc. Creatinine Clearance 53 mL/min (70-130); Calcium 9.4 mg/dL (7.8-10.44); Carbon Dioxide 19 mmol/L (23-31); Chloride 125 mmol/L (98-107); Estimated GFR-MDRD 33
[2017-02-09 07:02] LABS: Band 5 % (5-11); Hematocrit 29.4 % (42.0-52.0); Myelocyte 2 % (0-0); Neutrophil 75 % (42-75); Red Blood Cell (RBC) Count 2.94 mill/uL (4.70-6.10); White Blood Cell (WBC) Count 20.9 thou/uL (4.8-10.8)
[2017-02-09 08:17] VITALS: BMI 34.0
--- NOTE | 2017-02-09 08:55 | PRG ---
DATE OF SERVICE: 02/09/2017 SUBJECTIVE: Mr. Concepcion is doing well today. He is more awake and alert. PHYSICAL EXAMINATION: VITAL SIGNS: Temperature 97.7 degrees, 78, 99% saturation. Urine output 3675 for 24 hours. The pat ient did receive a dose of Lasix yesterday. LABORATORY: Patient's white count is 20.9, hemoglobin 9.1, sodium 157, potassium 4.6, BUN 48, creati nine 2.0, both improved from 51 and 2.06 respectively. GFR 33. Overall, the patient is doing better. LUNGS: Clear to auscultation, a few rhonchi in the base. CARDIAC: Regular rate and rhythm. ABDOMEN: Soft, nontender. Colostomy healthy. Wound granulating. Wound VAC change today per Wound Care. EXTREMITIES: Edematous, scrotal edematous. ASSESSMENT AND PLAN: 1. Malnutrition, fluid overload, fluid positive, would TKO or saline lock IV fluids as possible. 2. Acute kidney injury, improving. Dr. Steiner is following. Dr. Steiner has increased IV fluids to 100 per hour D5W. I would like to decrease these as possible. 3. Hypernatremia, hyperchloremia. 4. Deconditioning. Transfer to rehab unit when possible 5. Colostomy status. 6. Open wound abdomen. 7. Swallowing difficulty. Speech Therapy reevaluated him yesterday and diet increased to regular wi th extra sauce and gravy, mechanical ground meat, no bread. Control assist by straw. We will ask sandy galindo to see him regarding dietary supplements three times a day. Hopefully, the patient can transfe r to rehab unit this week.
[2017-02-09] MEDS ORDERED: Digoxin 0.125 MG TAB PO SCH (09:00)
--- NOTE | 2017-02-09 09:52 | PRG ---
DATE OF SERVICE: 02/09/2017 SUBJECTIVE: Mr. Concepcion is a 71-year-old white male, who was seen by the Renal Service for his acute kidney injury that was hemodynamically mediated renal dysfunction. Renal function is slowly improved over time. No dialysis was done. However, in the last several days, serum sodium has been going up . Most recent serum sodium is now 157. My plan is start him on D5 water. He does make adequate uri ne output. In the last 24 hours, he made 3.6 liters of urine output, no new complaints, no chest arya n or shortness of breath. OBJECTIVE: VITAL SIGNS: Blood pressure is 135/80, heart rate 80, respiratory rate 16, temperature 97.5, and pul se ox 92%. GENERAL: Noted to be awake, alert, supine, comfortable, not in distress. SKIN: Adequate turgor. HEENT: He has slightly pale conjunctivae, anicteric sclerae. NECK: No neck mass, no carotid bruits, no JVD. CHEST: No deformities. LUNGS: Clear breath sounds. No wheezing, no crackles. HEART: Normal sinus rhythm. No murmur, no gallops, no rub. ABDOMEN: Globular, soft, nontender, no masses. Positive for ostomy. EXTREMITIES: No edema. MEDICATIONS: 02/09/2017 was reviewed. LABORATORY DATA: On 02/09/2017 - White count 20.9, hemoglobin 9.1. Sodium 157, potassium 4.6, chlor slade 125, carbon dioxide 19, BUN 48, creatinine 2.0, glucose 103, and calcium 9.4. ASSESSMENT AND PLAN: 1. Acute kidney injury, much improved with volume repletion and supportive care. No indication for any dialytic intervention. This was a hemodynamically mediated renal dysfunction. 2. Hypernatremia, worsening serum sodium in spite of increasing fluid intake. We will start D5 wate r at 125 mL per hour. Recheck base met in the morning. 3. Status post acute abdomen - status post exploratory laparotomy, doing well. Surgery is following .
[2017-02-09] MEDS: Heparin 5,000 UNITS/ML VIAL SC SCH ×2 (10:05→21:54)
--- NOTE | 2017-02-09 10:07 | PRG ---
DATE OF SERVICE: 02/09/2017 SERVICE: Pulmonary Medicine INTERVAL HISTORY: The patient is doing fine from a respiratory standpoint. He denies any current fe vers, nausea or vomiting. He did have some chills overnight. He feels a little cold this morning. Otherwise, there were no events. PHYSICAL EXAMINATION: VITAL SIGNS: Afebrile, pulse 80, blood pressure 135/80, respirations 16, saturation 92% on 2 liters nasal cannula. HEENT: Normocephalic, atraumatic. Sclerae are white, conjunctivae pink. Oral and nasal mucosa is m oist without lesions. LUNGS: Decent air entry. There is no prolonged expiratory phase. Crackles are present dependently. No rhonchi. HEART: Normal rate, regular. ABDOMEN: Soft, nontender, nondistended, bowel sounds positive. MUSCULOSKELETAL: Wound VAC and colostomy in place. GENITOURINARY: Temple catheter in place. NEUROLOGIC: Grossly nonfocal. LABORATORY DATA: WBC 20.9 and up trending, hemoglobin 9.1 and stable. Platelets 267,000. Neutrophi l count is 75%, band count is slowly increasing to 5%. INR 1.3. Sodium 157. This is up trending. Chloride is also trending to 125. Creatinine is stable at 2.0 with a BUN that is also stable at 48. ASSESSMENT: 1. Acute hypoxic respiratory failure, resolving. 2. Septic shock secondary to peritonitis, resolving. 3. Peritonitis secondary to perforated diverticulitis. 4. Status post laparotomy and subsequent washout with closure. 5. Chronic systolic heart failure, currently volume overloaded. 6. Hypernatremia. 7. Atrial fibrillation, permanent. PLAN: We will provide additional amounts of free water today. The patient is still volume overloade d. As such, he will also need to be diuresed, but will probably save this for tomorrow. Pulmonary C ritical Care will continue to follow while the patient remains in this setting.
[2017-02-09] MEDS ORDERED: Furosemide 40 MG/4 ML VIAL SLOW IVP SCH (11:00)
[2017-02-09] MEDS: Carvedilol 3.125 MG TAB PO SCH ×2 (15:38→21:53)
[2017-02-10 00:33] VITALS: BP 136/80; TEMP 97.7
[2017-02-10] MEDS ORDERED: Furosemide 40 MG/4 ML VIAL SLOW IVP SCH ×2 (06:00→09:00)
[2017-02-10] MEDS ORDERED: Zinc Sulfate 220 MG CAP PO SCH (09:00)
[2017-02-10] MEDS ORDERED: Ascorbic Acid 500 mg Chewable Tablet PO SCH (09:00)
--- NOTE | 2017-02-10 11:31 | DS ---
DATE OF ADMISSION: 01/29/2017 DATE OF : 02/12/2017 HOSPITALIZATION DIAGNOSES: 1. Perforated diverticulitis with peritonitis diffuse and multiple intra-abdominal abscesses. 2. Malnutrition. 3. Respiratory failure. 4. Nonischemic cardiomyopathy, previous ejection fraction 20-25%, more recent in Dr. Erwin's offi ce 45-50%. 5. Defibrillator presence. 6. History of laparoscopic cholecystectomy. 7. History of colonoscopy. 8. History of anticoagulation, although has not taken this in several days prior to this admission, Xarelto 20 mg a day. 9. Hypertension. 10. History of chronic obstructive pulmonary disease. 11. Asthma. HISTORY: A 71-year-old male who reports with a 2 week progressive history of abdominal distention an d bloating. He reports normal bowel movements. He had a bowel movement 3 days prior to this admissi on. He had been passing some flatus. He had a colonoscopy in the remote past elsewhere. He went to Dr. Ann's office today feeling that he was bloated and constipated. In Dr. Ann's office, the triston ent was noted to be hypotensive, pale and looked very ill. Blood pressure in the systolics of 60-76, heart rate 90. He was seen in the emergency room, given fluids, intravenous access, started on Levo phed, fluid boluses administered. Blood pressure improved to 90s systolic. Temple catheter attempted , no urine returned, it was left out. This was done on two occasions. CAT scan of abdomen and pelvi s at 2:40 p.m. performed without IV and without oral contrast revealed chronic lung base changes, no solid organ abnormality, gallbladder surgically absent. No evidence of urinary obstruction, strandin g abdominal mesenteric, complex perihepatic fluid and intra-abdominal fluid was distended fluid fille d loops of small bowel, decompressed small bowel distally, phlegmon changes in the left hemidiaphragm . Could not be excluded. Colon was decompressed. The patient had a hemoglobin of 14, 62% bands. White count 18. Sodium 128, potassium 4.5, creatinine 3.47 (prior to this hospitalization normal acc ording to the computer). Liver function tests were normal. Troponin 0.074. BNP 258. The patient w as admitted. IV access established. He was to be admitted as the CAT scan did not show any acute fi ndings. Considering his abdominal exam revealing significant tenderness I was asked to see him. I saw him in the emergency room and I appreciated a rigid abdomen. The patient was given IV fluids and antibiotics, taken to the operating room for emergent operation 01/29/2017, undergoing laparotomy, w ashout of abdomen and drainage of multiple abscesses and inflammatory fluid, adhesiolysis undertaken, sigmoid colon resected, colostomy was not brought up, Mccarty's pouch marked with a 2-0 Prolene sutu re. ABThera placed with open abdomen with plan to return to the operating room the next few days aft er stabilization. The patient postoperatively was sent to the ICU on the ventilator on 2 pressors an d eventually in the ICU he required 4 pressors. He suffered acute renal failure. Hemodialysis you ter right groin had been placed. The patient did not require dialysis. Nephrology followed him. He was supported and IV fluids aggressively administered. His vasopressors were weaned. He was taken back to the operating room on 02/02/2017 for laparotomy, abdominal washout planned second look opera tion. The splenic flexure mobilization was performed, colostomy brought up, Seprafilm placed, defini tive abdominal wound closure undertaken and a wound VAC applied. Two units of blood were transfused for hemoglobin of 8.4. The patient required reinstitution of vasopressors initially, but daily, thes e were weaned off. The patient was resuscitated with fluid initially over the next few days and flui ds were weaned. He was diuresed, his renal function improved. He never required dialysis. His whit e count improved, initially dropped down to 16,000 then deteriorated again. The patient's renal func tion improved and his creatinine improved 2, BUN 48, urine output picked up. I observed him in the u nit with careful observation and mobilized. Physical therapy saw him. He was eventually extubated a nd as noted above with the physical therapy, out of bed, he tolerated this and he was diuresed as abl e. He is hemodynamics improved, renal function improved, although did not normalize. It was felt th at the patient might survive this ordeal and his wound seemed to be healing. Speech Therapy evaluate d him periodically and we gave him liquids and advance his diet as appropriate. Colostomy was workin g well. The patient was appreciated to have a DNR and this was established, starting this hospitaliz ation. In the middle of the night the patient previously had been communicating and interacting with nurses and physicians, but he subsequently was found in respiratory arrest and honored his DNR and h e was pronounced . CAUSE OF : Multiple organ failure, peritonitis renal dysfunction, respiratory failure. The body was released to the home.
--- NOTE | 2017-02-12 23:17 | PQF ---
ELIANE ROSARIO [id number] CLINICAL DOCUMENTATION CLARIFICATION FORM: POST DISCHARGE DATE: 02/12/2017 ATTN: Dr. Melendez Please exercise your independent, professional judgment in responding to the clarification form. Clinical indicators are provided on the bottom of this form for your review On the 02/02/17 procedure note, it is documented that "there was one serosal tear closed with 3.0 Lembert sutures." Would you please clarify below [ ] Serosal tear was incidental/inherent to the procedure [ ] Serosal tear was a complication Thank you. (This form is maintained as a part of the permanent medical record) 2014 [employer] All Rights Reserved KEVIN Painter, CCS [email or web address] [phone] MTDD
--- NOTE | 2017-03-14 14:59 | EKG ---
Test Reason : HYPOTENSION Blood Pressure : / mmHG Vent. Rate : 082 BPM Atrial Rate : 078 BPM P-R Int : 000 ms QRS Dur : 150 ms QT Int : 430 ms P-R-T Axes : 000 -84 057 degrees QTc Int : 502 ms Electronic ventricular pacemaker Confirmed by COLLINS CHAMBERS D.O. ([id number]), publications editor NIKOLAY SILVA ([id number]) on 03/14/2017 2:58:43 PM Referred By: Confirmed By:COLLINS CHAMBERS D.O.
== END 2017-02-10 06:35 | disposition expired | DRG 853 ==
LOC: ERS 11:23 → CCU 19:43 → SJJU 02-06 17:38 → SURG A 02-07 16:17
PROVIDERS: ADMIT Student in an Organized Health Care Education/Training Program; ATTEND Student in an Organized Health Care Education/Training Program
PROC: 0DTN0ZZ Resection of Sigmoid Colon, Open Approach (ICD-10-PCS; principal; 2017-01-29)
PROC: 5A1955Z Respiratory Ventilation, Greater than 96 Consecutive Hours (ICD-10-PCS; 2017-01-29)
PROC: 02HV33Z Insertion of Infusion Device into Superior Vena Cava, Percutaneous Approach (ICD-10-PCS; 2017-01-29)
PROC: B548ZZA Ultrasonography of Superior Vena Cava, Guidance (ICD-10-PCS; 2017-01-29)
PROC: 30233N1 Transfusion of Nonautologous Red Blood Cells into Peripheral Vein, Percutaneous Approach (ICD-10-PCS; 2017-01-29)
PROC: 0D1M0Z4 Bypass Descending Colon to Cutaneous, Open Approach (ICD-10-PCS; 2017-02-02)
DX: A41.9 Sepsis, unspecified organism (principal); R65.21 Severe sepsis with septic shock; N17.0 Acute kidney failure with tubular necrosis; J96.01 Acute respiratory failure with hypoxia; G93.40 Encephalopathy, unspecified; E46 Unspecified protein-calorie malnutrition; E87.2 Acidosis; E87.0 Hyperosmolality and hypernatremia; K57.20 Diverticulitis of large intestine with perforation and abscess without bleeding; I11.0 Hypertensive heart disease with heart failure; I50.22 Chronic systolic (congestive) heart failure; I48.0 Paroxysmal atrial fibrillation; I42.0 Dilated cardiomyopathy; N17.9 Acute kidney failure, unspecified; E87.1 Hypo-osmolality and hyponatremia; J44.9 Chronic obstructive pulmonary disease, unspecified; Z95.0 Presence of cardiac pacemaker; F17.210 Nicotine dependence, cigarettes, uncomplicated; E78.5 Hyperlipidemia, unspecified; D64.9 Anemia, unspecified; Z66 Do not resuscitate; E87.8 Other disorders of electrolyte and fluid balance, not elsewhere classified
CPT/HCPCS: 36415; 36416; 36430; 36556; 71010; 74000; 74176; 76770; 80048; 80053; 80162; 82553; 82570; 82805; 83605; 83735; 83880; 83930; 83935; 84100; 84134; 84300; 84484; 85025; 85060; 85610; 86850; 86900; 86901; 87040; 88307; 93005; 93306; 94002; 94003; 94640; 94760; 96361; 96365; 96366; 96374; 99292; A4216; C1751; C1752; C9113; G8978-GP-CM; G8979-GP-CK; G8987-GO-CM; G8988-GO-CK; G8996-GN-CL; G8996-GN-CN; G8997-GN-CJ; G8997-GN-CK; J0131; J0171; J0696; J1160; J1644; J1720; J1940; J2001; J2250; J2270; J2543; J2704; J2765; J3010; J3370; J3475; J3480; J7050; J7070; J7620; P9016; P9035; P9045; P9047; P9059